=== PATIENT | male | born 1960 | race Caucasian/White ===

== ENCOUNTER 2018-08-16 13:46 | Inpatient (IN) | payer OTHER ==
--- NOTE | 2018-08-16 14:27 | ED Physician Chart ---
ED Chief Complaint/HPI - Patient Information Date Seen:: 08/16/18 Time Seen:: 14:00 Chief Complaint:: Fever History of Present Illness:: onset x 3 days of fever, cough, congestion, Abd. Pain, diarrhea, and weakness; no report of trauma, H/As, S/T, neck pain, C/P, SOB, A/N/V/C, chills, or urinary s/s Allergies:: Allergies Allergy/AdvReac Type Severity Reaction Status Date / Time No Known Allergies Allergy Verified 08/16/18 13:55 Vitals:: Vital Signs - 8 hr 08/16/18 14:02 Temp 99.5 F HR 120 RR 21 BP 120/92 O2 Sat % 96 Historian:: Patient, EMS Review:: Nurse's Note Reviewed, Old Chart Reviewed, EMS run form Reviewed ED Review of Systems - Review of Systems General/Constitutional: No fever, No chills, No weight loss, Weakness, No diaphoresis, No edema, No loss of appetite Skin: No skin lesions, No rash, No bruising Head: No headache, No light-headedness Eyes: No loss of vision, No pain, No diplopia ENT: No earache, No nasal drainage, No sore throat, No tinnitus Neck: No neck pain, No swelling, No thyromegaly, No stiffness, No mass noted Cardio Vascular: No chest pain, No palpitations, No PND, No orthopnea, No edema Pulmonary: No SOB, No cough, No sputum, No wheezing GI: Nausea, Vomiting, Diarrhea, Pain, No melena, No hematochezia, No constipation, No hematemesis G/U: No dysuria, No frequency, No hematuria, No nacturia Musculoskeletal: No bone or joint pain, No back pain, No muscle pain Endocrine: No polyuria, No polydipsia Psychiatric: No prior psych history, No depression, No anxiety, No suicidal ideation, No homicidal ideation, No auditory hallucination, No visual hallucination Hematopoietic: No bruising, No lymphadenopathy Allergic/Immuno: No urticaria, No angioedema Neurological: No syncope, No focal symptoms, No weakness, No paresthesia, No headache, No seizure, No dizziness, No confusion, No vertigo ED Past Medical History - Past Medical History Obtainable: Yes Past Medical History: HTN, CAD, CHF, Dyslipidemia Family History: HTN Social History: Non Smoker, No Alcohol, No Drug Use, Single, Care Facility Surgical History: None Psychiatricy History: None Medication: Reviewed Family Medical History - Family Member Mother History Unknown: Yes ED Physical Exam - Physical Examination General/Constitutional: Awake, Well-developed, well-nourished, Alert, No distress, GCS 15, Non-toxic appearing, Ambulatory Head: Atraumatic Eyes: Lids, conjuctiva normal, PERRL, EOMI Skin: Nl inspection, No rash, No skin lesions, No ecchymosis, Well hydrated, No lymphadenopathy ENMT: External ears, nose nl, TM canals nl, Nasal exam nl, Lips, teeth, gums nl , Oropharynx nl, Tonsils nl Neck: Nontender, Full ROM w/o pain, No JVD, No nuchal rigidity, No bruit, No mass, No stridor Other Neck comments:: supple; no meningeal signs; no cervical tenderness; no bruits Respiratory: Nl effort/Exclusion Other Respiratory comments:: Lungs: + Rales and Rhonchi Cardio Vascular: RRR, No murmur, gallop, rubs, NL S1 S2, Carotid/Femoral/Distal pulses equal bilaterally GI: No tenderness/rebounding/guarding, No organomegaly, No hernia, Normal BS's, Nondistended, No mass/bruits, No McBurney tenderness, Rectum exam nl Other GI comments:: no pulsatile masses : No CVA tenderness Extremities: No tenderness or effusion, Full ROM, normal strength in all extremities, No edema, Normal digits & nails Neuro/Psych: Alert/oriented, DTR's symmetric, Normal sensory exam, Normal motor strength, Judgement/insight normal, Mood normal, Normal gait, No focal deficits Misc: Normal back, No paraspinal tenderness ED Labs/Radiology/EKG Results - Lab Results Comments:: Reviewed - Radiology Results Comments:: CXR: + Patchy RLL Infiltrate; CM - EKG Interpretations EKG Time:: 14:21 Rate & Rhythm: 120; ST Comments:: non-specific st-t changes ED Septic Shock - . Is Septic Shock (SBP<90, OR Lactate>4 mmol\L) present?: No - <6hrs of presentation: Vital Signs: Vital Signs - 8 hr 08/16/18 14:02 Temp 99.5 F HR 120 RR 21 BP 120/92 O2 Sat % 96 ED Reassessment (Disposition) - Reassessment Reassessment Condition:: Improved - Diagnosis Diagnosis:: Fever; Weakness; Cough; Congestion; Abd. Pain; Pneumonia; Leukocytosis; Anemia; Lactic Acidosis; Elevated Lactic Acid; Hyponatremia; Dehydration; Tachycardia; HTN; Sepsis; UTI - Aftercare/Follow up Instructions Aftercare/Follow-Up Instructions:: Counseled pt regarding lab results/diagnosis & need follow up, Counseled pt & family regarding lab results/diagnosis & need follow up - Patient Disposition Discharge/Transfer:: Acute Care w/in this hosp Accepting Physician:: Dr. Reynoso Time Called:: 1600 Time Responded:: 16:00 Admitted to:: Telemetry Spoke to:: Dr. Reynoso Admitting Medical Physician:: Dr. Reynoso Condition at Disposition:: Stable, Improved
[2018-08-16] MEDS ORDERED: Levofloxacin 500mg/100mL 500 MG/100 ML BAG IV ONE ×2 (14:32→15:07)
[2018-08-16 14:35] LABS: % BASOPHILS 1.3 % (0.0-2.0); % EOSINOPHILS 0.8 % (0.0-5.0); % LYMPHOCYTES 8.7 % (20.0-50.0); % NEUTROPHILS 82.2 % (40.0-80.0); BASOPHILE ABSOLUTE 0.2 Th/cumm (0-0.2); EOSINOPHILE ABSOLUTE 0.1 Th/cmm (0.1-0.4); HEMATOCRIT 31.9 % (41.0-60); HEMOGLOBIN 10.4 gm/dL (12-16); LYMPHOCYTE ABSOLUTE 1.1 Th/cmm (1.5-3.0); MEAN CELL VOLUME 92.4 fl (80-99); MEAN CORPUSCULAR HEMOGLOBIN 30.2 pg (26.0-30.0); MEAN CORPUSCULAR HGB CONC 32.7 pg (28.0-36.0); MEAN PLATELET VOLUME 7.5 fl; MONOCYTE ABSOLUTE 0.9 Th/cmm (0.3-1.0); NEUTROPHILE ABSOLUTE 9.9 Th/cmm (1.8-8.0); PLATELET COUNT 307 Th/cmm (150-400); RED BLOOD COUNT 3.45 Mil/cmm (4.30-5.70); RED CELL DISTRIBUTION WIDTH 16.1 % (11.5-20.0); WHITE BLOOD COUNT 12.2 Th/cmm (4.8-10.8)
--- NOTE | 2018-08-16 14:37 | Diagnostic Imaging Report ---
CHEST X-RAY: AP view INDICATION: Weakness COMPARISON: None FINDINGS: Suboptimal lung volumes are seen with hazy right lung density likely due to an effusion. Left lower lung zone linear markings are noted. Heart size is normal. Degenerative changes of the spine are noted. Old left midclavicular fracture is noted. IMPRESSION: Hazy right lung density probably due to a pleural effusion. Underlying infiltrate in the right lower lung zone cannot be excluded. Recommend short-term follow-up with improved inspiration. Increased left basal linear markings probably due to subsegmental atelectasis or scarring.
[2018-08-16 14:50] LABS: INR 1.16 (0.5-1.4)
[2018-08-16 14:51] LABS: ALBUMIN 2.9 gm/dL (4.2-5.5); ALKALINE PHOSPHATASE 387 U/L (34-104); ANION GAP 13.4 (7.0-16.0); BILIRUBIN,TOTAL 0.8 mg/dL (0.3-1.0); BUN - UREA NITROGEN 10 mg/dL (7-25); CALCIUM SERUM 8.7 mg/dL (8.6-10.3); CARBON DIOXIDE 24.6 mEq/L (21.0-31.0); CHLORIDE 96 mEq/L (98-107); CREATININE - SERUM 0.4 mg/dL (0.7-1.3); CREATININE KINASE 15 U/L (30-223); GFR AFRICAN-AMERICAN > 60.0 ml/min (>90); GFR NON AFRICAN-AMERICAN > 60.0 ml/min; GLUCOSE 119 mg/dL (70-105); SGOT 45 U/L (13-39); SGPT/ALT 21 U/L (7-52); SODIUM SERUM 130 mEq/L (136-145); TOTAL PROTEIN,SERUM 5.8 gm/dL (6.0-8.3)
[2018-08-16 14:52] LABS: AMYLASE SERUM 43 U/L (29-103); LIPASE 32 U/L (11-82)
[2018-08-16 14:54] LABS: TROP I 0.01 ng/mL (0.01-0.05)
[2018-08-16] MEDS: Sodium Chloride 0.9% 1,000 ML IV ONE ×2 (15:04→20:21)
[2018-08-16 15:28] LABS: URINE SOURCE MIDSTREAM
[2018-08-16 15:32] LABS: URINE BILIRUBIN SMALL (NEGATIVE); URINE BLOOD NEGATIVE (NEGATIVE); URINE GLUCOSE (UA) NEGATIVE (NEGATIVE); URINE KETONE NEGATIVE (NEGATIVE); URINE LEUKOCYTE ESTERASE TRACE (NEGATIVE); URINE MICROSCOPIC INDICATED? YES; URINE NITRATE NEGATIVE (NEGATIVE); URINE PH 6.5 (4.6 - 8.0); URINE PROTEIN TRACE mg/dL (NEGATIVE); URINE UROBILINOGEN 0.2 E.U./dL (0.2 - 1.0)
[2018-08-16 15:34] LABS: URINE CLARITY CLEAR (CLEAR); URINE COLOR YELLOW
[2018-08-16 15:39] LABS: URINE BACTERIA FEW /hpf (NONE SEEN); URINE EPITHELIAL CELLS FEW /lpf (FEW); URINE RBC 0-2 /hpf (0-5)
[2018-08-16] MEDS: Morphine Sulfate 2 mg/mL 1mL Syr IVP PRN (21:04)
[2018-08-16] MEDS ORDERED: D5-0.45NS 1,000 ML IV SCH (23:59)
[2018-08-17] MEDS: Vancomycin HCL 250 mg /10mL UDC PO SCH ×4 (00:19→17:00)
[2018-08-17 06:26] LABS: % BASOPHILS 0.2 % (0.0-2.0); % LYMPHOCYTES 9.2 % (20.0-50.0); % MONOCYTES 9.3 % (2.0-10.0); % NEUTROPHILS 80.3 % (40.0-80.0); EOSINOPHILE ABSOLUTE 0.1 Th/cmm (0.1-0.4); HEMATOCRIT 33.2 % (41.0-60); HEMOGLOBIN 10.9 gm/dL (12-16); LYMPHOCYTE ABSOLUTE 1.1 Th/cmm (1.5-3.0); MEAN CELL VOLUME 92.8 fl (80-99); MEAN CORPUSCULAR HEMOGLOBIN 30.4 pg (26.0-30.0); MEAN CORPUSCULAR HGB CONC 32.8 pg (28.0-36.0); MEAN PLATELET VOLUME 7.2 fl; MONOCYTE ABSOLUTE 1.1 Th/cmm (0.3-1.0); NEUTROPHILE ABSOLUTE 9.3 Th/cmm (1.8-8.0); PLATELET COUNT 253 Th/cmm (150-400); RED BLOOD COUNT 3.58 Mil/cmm (4.30-5.70); RED CELL DISTRIBUTION WIDTH 15.9 % (11.5-20.0); WHITE BLOOD COUNT 11.6 Th/cmm (4.8-10.8)
[2018-08-17 06:36] LABS: ANION GAP 10.5 (7.0-16.0); BUN - UREA NITROGEN 9 mg/dL (7-25); CALCIUM SERUM 8.3 mg/dL (8.6-10.3); CARBON DIOXIDE 24.2 mEq/L (21.0-31.0); CHLORIDE 98 mEq/L (98-107); CREATININE - SERUM 0.3 mg/dL (0.7-1.3); GFR AFRICAN-AMERICAN > 60.0 ml/min (>90); GFR NON AFRICAN-AMERICAN > 60.0 ml/min; GLUCOSE 126 mg/dL (70-105); POTASSIUM SERUM 3.7 mEq/L (3.5-5.1); SODIUM SERUM 129 mEq/L (136-145)
[2018-08-17] MEDS: Pantoprazole 40 mg EC Tab PO SCH (06:38)
[2018-08-17] MEDS: Aspirin 81mg Chewable Tab PO SCH (08:45)
[2018-08-17] MEDS: Ferrous Sulfate 325 MG TAB PO SCH ×2 (08:45→17:00)
[2018-08-17] MEDS: Lactobacillus Rhamnosus GG 15 Billion CFU CAP.SPRINK PO SCH (08:45)
[2018-08-17] MEDS: Multivitamin w/ Minerals Tab PO SCH (08:45)
--- NOTE | 2018-08-17 09:05 | History & Physical ---
ADMIT DATE: 08/17/2018 CHIEF COMPLAINT: Fever and abdominal pain. HISTORY OF PRESENT ILLNESS: This is a 57-year-old male who was originally admitted from a halfway facility and transferred to [facility] due to fever and abdominal pain for 3 days. According to the patient, 10 days ago, he underwent abdominal tap with the average of about 7 liters taken. REVIEW OF SYSTEMS: GENERAL: This is a 57-year-old male. Positive weakness. Positive fever. HEAD: No headache or dizziness. EYES: No eye pain or blurring of vision. NECK: No neck pain. No nuchal rigidity. CHEST: No chest pain. No palpitation. PULMONARY: No cough. No shortness of breath. GASTROINTESTINAL: Positive abdominal pain. Positive distention. No constipation, no diarrhea. MUSCULOSKELETAL: No joint pain. No muscle pain. SOCIAL HISTORY: The patient lives in a halfway facility prior to hospitalization. PAST SURGICAL HISTORY: Unremarkable. FAMILY HISTORY: Unremarkable. PSYCHIATRIC HISTORY: Unremarkable. PAST MEDICAL HISTORY: Includes liver cirrhosis, anemia, congestive heart failure, gastroesophageal reflux disease, vitamin D deficiency. FAMILY HISTORY: Unremarkable. PHYSICAL EXAMINATION: VITAL SIGNS: Temperature 97.9, heart rate of 107, blood pressure 112/80, respirations 20, 96% on room air. GENERAL: This is a 57-year-old male that appears as stated in no acute distress. HEENT: Head is atraumatic and normocephalic. Eyes: Bilateral conjunctivae are clear. Bilateral pupils are equally round and reactive. NECK: Supple. No JVD. CARDIOVASCULAR: S1 and S2, without murmur. PULMONARY: Fine scattered rhonchi noted. GASTROINTESTINAL: Positive distention. Positive bowel sounds. MUSCULOSKELETAL: No clubbing. No cyanosis noted. ASSESSMENT: 1. Pneumonia. 2. Liver cirrhosis. 3. Anemia. 4. History of Clostridium difficile. PLAN: We will admit the patient to telemetry. We will do medication reconciliation accordingly. We will consult with GI and ID doctor. Treatment plans were discussed with the patient's nurse. Treatment plans were discussed with Dr. Reynoso. JOB# [id number]
[2018-08-17] MEDS: D5-0.9%NS 1,000 ML IV SCH ×2 (11:11→19:47)
[2018-08-17] MEDS ORDERED: Diltiazem 5 mg/mL 5mL Vial IVP PRN ×2 (14:52→15:20)
--- NOTE | 2018-08-17 14:59 | General Progress Note ---
Subjective - Review of Systems Service Date: 08/17/18 Subjective: Patient complains of abdominal pain and palpitation Objective - Results Result Diagrams: 08/17/18 06:10 08/17/18 06:15 Recent Labs: Laboratory Last Values WBC 11.6 Th/cmm (4.8-10.8) H 08/17/18 06:10 RBC 3.58 Mil/cmm (4.30-5.70) L 08/17/18 06:10 Hgb 10.9 gm/dL (12-16) L 08/17/18 06:10 Hct 33.2 % (41.0-60) L 08/17/18 06:10 MCV 92.8 fl (80-99) 08/17/18 06:10 MCH 30.4 pg (26.0-30.0) H 08/17/18 06:10 MCHC Differential 32.8 pg (28.0-36.0) 08/17/18 06:10 RDW 15.9 % (11.5-20.0) 08/17/18 06:10 Plt Count 253 Th/cmm (150-400) 08/17/18 06:10 MPV 7.2 fl 08/17/18 06:10 Neutrophils % 80.3 % (40.0-80.0) H 08/17/18 06:10 Lymphocytes % 9.2 % (20.0-50.0) L 08/17/18 06:10 Monocytes % 9.3 % (2.0-10.0) 08/17/18 06:10 Eosinophils % 1.0 % (0.0-5.0) 08/17/18 06:10 Basophils % 0.2 % (0.0-2.0) 08/17/18 06:10 PT 12.0 SECONDS (9.5-11.5) H 08/16/18 14:30 INR 1.16 (0.5-1.4) 08/16/18 14:30 PTT (Actin FS) 27.1 SECONDS (26.0-38.0) 08/16/18 14:30 Sodium 129 mEq/L (136-145) L 08/17/18 06:15 Potassium 3.7 mEq/L (3.5-5.1) 08/17/18 06:15 Chloride 98 mEq/L (98-107) 08/17/18 06:15 Carbon Dioxide 24.2 mEq/L (21.0-31.0) 08/17/18 06:15 Anion Gap 10.5 (7.0-16.0) 08/17/18 06:15 BUN 9 mg/dL (7-25) 08/17/18 06:15 Creatinine 0.3 mg/dL (0.7-1.3) L 08/17/18 06:15 Est GFR ( Amer) > 60.0 ml/min (>90) 08/17/18 06:15 Est GFR (Non-Af Amer) > 60.0 ml/min 08/17/18 06:15 BUN/Creatinine Ratio 30.0 08/17/18 06:15 Glucose 126 mg/dL (70-105) H 08/17/18 06:15 POC Glucose 96 MG/DL (70 - 105) 08/16/18 17:25 Whole Bld Lactic Acid 1.76 mmol/L (0.60-1.99) 08/16/18 17:00 Calcium 8.3 mg/dL (8.6-10.3) L 08/17/18 06:15 Total Bilirubin 0.8 mg/dL (0.3-1.0) 08/16/18 14:30 AST 45 U/L (13-39) H 08/16/18 14:30 ALT 21 U/L (7-52) 08/16/18 14:30 Alkaline Phosphatase 387 U/L (34-104) H 08/16/18 14:30 Creatine Kinase 15 U/L (30-223) L 08/16/18 14:30 Troponin I 0.01 ng/mL (0.01-0.05) 08/16/18 14:30 Total Protein 5.8 gm/dL (6.0-8.3) L 08/16/18 14:30 Albumin 2.9 gm/dL (4.2-5.5) L 08/16/18 14:30 Globulin 2.9 gm/dL 08/16/18 14:30 Albumin/Globulin Ratio 1.0 (1.0-1.8) 08/16/18 14:30 Amylase 43 U/L (29-103) 08/16/18 14:30 Lipase 32 U/L (11-82) 08/16/18 14:30 Urine Source MIDSTREAM 08/16/18 15:05 Urine Color YELLOW 08/16/18 15:05 Urine Clarity CLEAR (CLEAR) 08/16/18 15:05 Urine pH 6.5 (4.6 - 8.0) 08/16/18 15:05 Ur Specific [place] 1.010 (1.005-1.030) 08/16/18 15:05 Urine Protein TRACE mg/dL (NEGATIVE) 08/16/18 15:05 Urine Glucose (UA) NEGATIVE mg/dL (NEGATIVE) 08/16/18 15:05 Urine Ketones NEGATIVE mg/dL (NEGATIVE) 08/16/18 15:05 Urine Blood NEGATIVE (NEGATIVE) 08/16/18 15:05 Urine Nitrate NEGATIVE (NEGATIVE) 08/16/18 15:05 Urine Bilirubin SMALL (NEGATIVE) H 08/16/18 15:05 Urine Urobilinogen 0.2 E.U./dL (0.2 - 1.0) 08/16/18 15:05 Ur Leukocyte Esterase TRACE (NEGATIVE) H 08/16/18 15:05 Urine RBC 0-2 /hpf (0-5) H 08/16/18 15:05 Urine WBC 2-5 /hpf (0-5) 08/16/18 15:05 Ur Epithelial Cells FEW /lpf (FEW) 08/16/18 15:05 Urine Bacteria FEW /hpf (NONE SEEN) 08/16/18 15:05 Urine Mucus FEW /lpf (FEW) 08/16/18 15:05 - Physical Exam Vitals and I&O: Vital Signs Temp 97.3 F 08/17/18 12:00 Pulse 105 08/17/18 12:31 Resp 20 08/17/18 12:00 BP 122/81 08/17/18 12:32 Pulse Ox 96 08/17/18 12:00 Intake & Output 08/16/18 08/17/18 08/17/18 18:59 06:59 18:59 Intake Total 628.333 240 Output Total 300 Balance 628.333 -60 Weight (lbs) 58.967 kg 58.967 kg 58.967 kg Intake: Intake, IV Amount 528.333 Sodium Chloride 0.9% 1, 528.333 000 ml @ 100 mls/hr IV . Q10H ONE Rx#:[id number] Oral 100 240 Output: Urine 300 Other: # Bowel Movements 0 Weight Source Estimated Bedscale Bedscale Active Medications: Current Medications Aspirin (Aspirin Chewable) 81 mg PO DAILY [facility] Stop: 10/16/18 08:59 Last Admin: 08/17/18 08:45 Dose: Not Given Benzonatate (Tessalon) 100 mg PO Q8H PRN PRN Reason: Cough Stop: 10/15/18 23:37 Cholecalciferol (Vitamin D3) 1,000 iu PO DAILY [facility] Stop: 10/16/18 08:59 Last Admin: 08/17/18 08:45 Dose: Not Given Diltiazem HCl (Cardizem) 20 mg IVP Q4H PRN PRN Reason: HR Greater than 120 per min Stop: 10/16/18 14:51 Diltiazem HCl (Cardizem) 60 mg PO Q6HR [facility] Stop: 10/16/18 17:59 Ferrous Sulfate (Iron) 325 mg PO BIDWM [facility] Stop: 10/16/18 07:59 Last Admin: 08/17/18 08:45 Dose: Not Given Folic Acid (Folate) 1 mg PO DAILY [facility] Stop: 10/16/18 08:59 Last Admin: 08/17/18 08:45 Dose: Not Given Furosemide (Lasix) 40 mg IVP DAILY [facility] Stop: 10/16/18 12:59 Last Admin: 08/17/18 12:32 Dose: 40 mg Ceftriaxone Sodium 1 gm/ (Sodium Chloride) 50 mls @ 100 mls/hr IV Q24HR [facility] Stop: 10/16/18 17:59 Dextrose/Sodium Chloride (D5-0.9%Ns) 1,000 mls @ 100 mls/hr IV .Q10H [facility] Stop: 10/16/18 09:44 Last Admin: 08/17/18 11:11 Dose: 100 mls/hr Lactobacillus Rhamnosus (Culturelle 15b) 1 each PO DAILY [facility] Stop: 10/16/18 08:59 Last Admin: 08/17/18 08:45 Dose: Not Given Morphine Sulfate (Morphine) 1 mg IVP Q4HR PRN PRN Reason: mild to moderate pain (1-6) Stop: 10/15/18 20:24 Last Admin: 08/16/18 21:04 Dose: 1 mg Morphine Sulfate (Morphine) 2 mg IVP Q4HR PRN PRN Reason: Severe Pain (LEVEL 7-10) Stop: 10/15/18 20:25 Pantoprazole Sodium (Protonix) 40 mg PO QDAC [facility] Stop: 10/16/18 07:29 Last Admin: 08/17/18 06:38 Dose: Not Given Spironolactone (Aldactone) 100 mg PO DAILY [facility] Stop: 10/16/18 12:59 Last Admin: 08/17/18 12:31 Dose: 100 mg Vancomycin HCl (Vancomycin Oral) 250 mg PO Q6HR [facility] Stop: 10/15/18 20:59 Last Admin: 08/17/18 12:31 Dose: 250 mg General: Alert, Oriented x3, No acute distress HEENT: Mucous membr. moist/pink Neck: Supple, JVD, +2 carotid pulse wo bruit (flat) Cardiovascular: Normal S1, Normal S2, Systolic murmurs, Other Lungs: Clear to auscultation (sinus tachycardia), Normal air movement Abdomen: Bowel sounds, Soft, Splenomegaly, Distended, Other (ascites) Extremities: Edema Neurological: Normal gait, Strength at 5/5 X4 ext, Normal tone, Cranial nerves 3 -12 NL, Reflexes 2+ Assessment/Plan - Problem List Patient Problems: All Active Problems WEAKNESS WITH ABDOMINAL DISTENTION (Acute) - Assessment Assessment: Supraventricular tachycardia Pneumonia Ascites Cirrhosis of liver Anemia Splenomegaly negative C. difficile colitis Congestive heart failure diastolic dysfunction acute Hyperlipidemia - Plan Plan: Continue present management patient cleared for paracentesis Patient given Cardizem IV push to control heart rate
[2018-08-17] MEDS ORDERED: Probiotic Screen MC PRN (15:43)
[2018-08-17] MEDS: Diltiazem 30 mg Tab PO SCH (17:00)
[2018-08-17] MEDS ORDERED: cefTRIAXone 1 GM in Sodium Chloride 0.9% 50 ML IV SCH (18:00)
[2018-08-17] MEDS ORDERED: cefTRIAXone 2 GM in Sodium Chloride 0.9% 100 ML IV SCH (18:15)
[2018-08-17] MEDS: Morphine Sulfate 2 mg/mL 1mL Syr IVP PRN ×2 (19:45→21:39)
--- NOTE | 2018-08-17 21:57 | Consultation ---
DATE OF CONSULTATION: 08/16/2018 INFECTIOUS DISEASE CONSULTATION REFERRING PHYSICIAN: Erin Reynoso M.D. REASON FOR CONSULTATION: Obliterative peritonitis. HISTORY OF PRESENT ILLNESS: The patient is a 57-year-old male with a past medical history of hypertension, coronary artery disease, CHF, dyslipidemia, brought in to the ER for fever of 3 days, history of cough and congestion. The patient also complained of diarrhea and generalized weakness. On initial evaluation, the patient's temperature was 99.5 degree Fahrenheit and WBC count was 12,200. Lactic acid was 2.12. As the patient has lactic acidosis, suspected sepsis. Sepsis workup was performed. Chest x-ray showed no active disease. The patient has density on the right side, suspect upper lobe effusion. Underlying plaque and cannot be ruled out. After suspect pneumonia and peritonitis, the patient was started on Rocephin and Zithromax. ID consult was called for further antibiotic management. PAST MEDICAL HISTORY: Includes hypertension, coronary artery disease, CHF, Dyslipidemia, liver cirrhosis and stool for C. diff. FAMILY HISTORY: Hypertension. SOCIAL HISTORY: The patient lives in a nursing facility. No history of smoking, alcohol or drug use at this time. PAST SURGICAL HISTORY: None. PSYCHIATRIC HISTORY: None. MEDICATIONS: As per medication reconciliation sheet. Antibiotic sweet, the patient is receiving vancomycin oral and Rocephin. ALLERGIES: NKDA. REVIEW OF SYSTEMS: GENERAL: The patient has no fever, no chills, no weight loss. The patient has generalized weakness. HEENT: No diplopia, no photophobia, no sore throat. RESPIRATORY: No cough, no shortness of breath. CARDIOVASCULAR: No chest pain, no palpitation, no leg swelling. GASTROINTESTINAL: The patient has nausea, vomiting, diarrhea and abdominal pain. No melena. GENITOURINARY: No dysuria. MUSCULOSKELETAL: No muscle pain, no joint pain. NEUROLOGIC: No headache, no dizziness, no focal weakness. PHYSICAL EXAMINATION: VITAL SIGNS: Shows temperature is 98.2, pulse 160, respirations 19, blood pressure 112/74. GENERAL: The patient is comfortable, lying in the bed, not in acute distress. HEENT: Head is normocephalic, atraumatic. Oral cavity moist, pink tongue. NECK: Supple, no JVD, no carotid bruit. Trachea in midline. CHEST: Bilateral breath sounds. No crackles or wheezing. CARDIOVASCULAR: S1, S2 within normal limits. Regular rhythm. No murmur, no gallop. ABDOMEN: Soft, nontender, nondistended. Bowel sounds present. EXTREMITIES: No cyanosis, no clubbing, no edema. NEUROLOGIC: Alert, awake, oriented x 3. No focal neurologic deficit. LABORATORY DATA: Current lab shows WBC count is 12,200, hemoglobin is 10.4, hematocrit 31.9, platelets are 307,000, neutrophil is 82%. Sodium 130, potassium 4, chloride 96, bicarbonate is 25, BUN is 10, creatinine 0.4, glucose is 119. Chest x-ray showed right lower lobe hilar opacities consistent with effusion versus infiltrate. IMPRESSION: 1. Right lower lobe pneumonia. 2. Leukocytosis, reactive versus sepsis. 3. Clostridium difficile colitis, on treatment. 4. Abdominal pain, rule out spontaneous bacterial peritonitis versus gastroenteritis. RECOMMENDATIONS: Continue Rocephin, vancomycin p.o. Monitor closely. Check stool for C. diff panel. [facility]# [id number] [facility]
--- NOTE | 2018-08-17 22:29 | Consultation ---
DATE OF CONSULTATION: 08/17/2018 REASON FOR CONSULT: Ascites. HISTORY OF PRESENT ILLNESS: This consult was obtained through the courtesy of Dr. Reynoso for this 57-year-old [facility] for fever, abdominal distention of few days' duration. The patient is not a good historian. He stated he knew only about cirrhosis when he came here, but on the other hand he admits to having 2 paracenteses before. The patient presented with abdominal distention, complaining of abdominal pain. PAST MEDICAL HISTORY: Cirrhosis of the liver. PAST SURGICAL HISTORY: He had an elbow surgery, ankle surgery, foot surgery. He had appendectomy. SOCIAL HISTORY: Smokes currently 2 cigars a day, used to smoke heavily. He drinks a couple of beers a day, used to drink much more before, about 6 a day, non-IV drug abuser. FAMILY HISTORY: Negative. ALLERGIES: No known drug allergies. MEDICATIONS: The patient is on aspirin, benazepril, Rocephin, vitamin D, iron, folic acid, Lasix 20 mg a day, Culturelle, morphine, Protonix, vancomycin. REVIEW OF SYSTEMS: Denies nausea, vomiting, hematemesis, melena, or hematochezia. He complains of abdominal pain. PHYSICAL EXAMINATION: GENERAL: The patient is awake, oriented to self and place, in no acute distress. VITAL SIGNS: Blood pressure is 112/80, heart rate 107, respiratory rate 20, and temperature 97.9. HEAD AND NECK: Pupils reactive to light and accommodation. Extraocular muscles intact. Sclerae are anicteric. Conjunctivae not pale. Oral cavity, no lesion. Neck supple. CHEST: Good air entry. LUNGS: Clear to auscultation. CARDIOVASCULAR SYSTEM: Showed regular rate and rhythm. No murmur or gallop. ABDOMEN: Soft, distended. There is ascites. EXTREMITIES: Lower extremities, no edema. CENTRAL NERVOUS SYSTEM: Grossly nonfocal. Generally, the patient is cachectic. LABORATORY AND DIAGNOSTIC DATA: White count 11.6, H and H 10.9 and 33.2 with platelets of 253. PT is 12 seconds. Chemistry showed AST of 45, ALT 21, alkaline phosphatase 387, bilirubin 0.8. IMPRESSION: A 57-year-old with decompensated cirrhosis. ASSESSMENT AND PLAN: Decompensated cirrhosis. Etiology of cirrhosis most likely alcohol. At this time, we are not quite sure what workup has been done before. We will try to get information from the penitentiary or from the attending physician, but in general the patient should have an ultrasound and an alpha fetoprotein every 6 months. The patient will need to have a paracentesis. We will try to do it today with Radiology if possible. If not, we will continue with diureses. At this time, 20 mg of Lasix is not sufficient. So will increase Lasix to 40 mg intravenously. We will start with now and daily. We will also add Aldactone 200 mg daily and monitor labs. Other medical problem such as hypertension, coronary artery disease, congestive heart failure, hyperlipidemia as per Dr. Reynoso. Thank you, Dr. Reynoso for allowing me to participate in the care of your patient. If you have any further questions, please let me know. JOB# [id number]
[2018-08-18] MEDS: Diltiazem 30 mg Tab PO SCH ×5 (00:55→23:48)
[2018-08-18] MEDS: Vancomycin HCL 250 mg /10mL UDC PO SCH ×5 (00:56→23:46)
[2018-08-18] MEDS: D5-0.9%NS 1,000 ML IV SCH ×2 (03:19→06:21)
[2018-08-18] MEDS: Pantoprazole 40 mg EC Tab PO SCH (07:03)
[2018-08-18] MEDS: Morphine Sulfate 2 mg/mL 1mL Syr IVP PRN ×2 (08:08→14:19)
[2018-08-18] MEDS ORDERED: Diatrizoate Meglumine/Diatri 30 mL Sol ONE (08:20)
[2018-08-18] MEDS: Ferrous Sulfate 325 MG TAB PO SCH ×2 (08:30→19:37)
[2018-08-18 08:31] LABS: % BASOPHILS 0.6 % (0.0-2.0); % EOSINOPHILS 1.3 % (0.0-5.0); % LYMPHOCYTES 9.5 % (20.0-50.0); % MONOCYTES 10.1 % (2.0-10.0); % NEUTROPHILS 78.5 % (40.0-80.0); BASOPHILE ABSOLUTE 0.1 Th/cumm (0-0.2); EOSINOPHILE ABSOLUTE 0.1 Th/cmm (0.1-0.4); HEMATOCRIT 31.5 % (41.0-60); HEMOGLOBIN 10.7 gm/dL (12-16); LYMPHOCYTE ABSOLUTE 1.1 Th/cmm (1.5-3.0); MEAN CELL VOLUME 92.7 fl (80-99); MEAN CORPUSCULAR HEMOGLOBIN 31.5 pg (26.0-30.0); MEAN PLATELET VOLUME 7.5 fl; MONOCYTE ABSOLUTE 1.1 Th/cmm (0.3-1.0); NEUTROPHILE ABSOLUTE 8.7 Th/cmm (1.8-8.0); PLATELET COUNT 278 Th/cmm (150-400); WHITE BLOOD COUNT 11.1 Th/cmm (4.8-10.8)
[2018-08-18] MEDS: Aspirin 81mg Chewable Tab PO SCH (08:31)
[2018-08-18] MEDS: Multivitamin w/ Minerals Tab PO SCH (08:31)
[2018-08-18] MEDS: Lactobacillus Rhamnosus GG 15 Billion CFU CAP.SPRINK PO SCH (08:31)
[2018-08-18 08:41] LABS: ANION GAP 10.3 (7.0-16.0); BUN - UREA NITROGEN 9 mg/dL (7-25); CALCIUM SERUM 8.2 mg/dL (8.6-10.3); CARBON DIOXIDE 26.2 mEq/L (21.0-31.0); CHLORIDE 98 mEq/L (98-107); CREATININE - SERUM 0.4 mg/dL (0.7-1.3); GFR AFRICAN-AMERICAN > 60.0 ml/min (>90); GFR NON AFRICAN-AMERICAN > 60.0 ml/min; GLUCOSE 105 mg/dL (70-105); POTASSIUM SERUM 3.5 mEq/L (3.5-5.1); SODIUM SERUM 131 mEq/L (136-145)
--- NOTE | 2018-08-18 10:17 | GI Progress Note ---
Subjective - Review of Systems Service Date: 08/18/18 Events since last encounter: No events Subjective: Waiting for paracentesis Objective - Results Result Diagrams: 08/18/18 05:45 08/18/18 05:45 Recent Labs: Laboratory Last Values WBC 11.1 Th/cmm (4.8-10.8) H 08/18/18 05:45 RBC 3.40 Mil/cmm (4.30-5.70) L 08/18/18 05:45 Hgb 10.7 gm/dL (12-16) L 08/18/18 05:45 Hct 31.5 % (41.0-60) L 08/18/18 05:45 MCV 92.7 fl (80-99) 08/18/18 05:45 MCH 31.5 pg (26.0-30.0) H 08/18/18 05:45 MCHC Differential 34.0 pg (28.0-36.0) 08/18/18 05:45 RDW 16.0 % (11.5-20.0) 08/18/18 05:45 Plt Count 278 Th/cmm (150-400) 08/18/18 05:45 MPV 7.5 fl 08/18/18 05:45 Neutrophils % 78.5 % (40.0-80.0) 08/18/18 05:45 Lymphocytes % 9.5 % (20.0-50.0) L 08/18/18 05:45 Monocytes % 10.1 % (2.0-10.0) H 08/18/18 05:45 Eosinophils % 1.3 % (0.0-5.0) 08/18/18 05:45 Basophils % 0.6 % (0.0-2.0) 08/18/18 05:45 PT 12.0 SECONDS (9.5-11.5) H 08/16/18 14:30 INR 1.16 (0.5-1.4) 08/16/18 14:30 PTT (Actin FS) 27.1 SECONDS (26.0-38.0) 08/16/18 14:30 Sodium 131 mEq/L (136-145) L 08/18/18 05:45 Potassium 3.5 mEq/L (3.5-5.1) 08/18/18 05:45 Chloride 98 mEq/L (98-107) 08/18/18 05:45 Carbon Dioxide 26.2 mEq/L (21.0-31.0) 08/18/18 05:45 Anion Gap 10.3 (7.0-16.0) 08/18/18 05:45 BUN 9 mg/dL (7-25) 08/18/18 05:45 Creatinine 0.4 mg/dL (0.7-1.3) L 08/18/18 05:45 Est GFR ( Amer) > 60.0 ml/min (>90) 08/18/18 05:45 Est GFR (Non-Af Amer) > 60.0 ml/min 08/18/18 05:45 BUN/Creatinine Ratio 22.5 08/18/18 05:45 Glucose 105 mg/dL (70-105) 08/18/18 05:45 POC Glucose 96 MG/DL (70 - 105) 08/16/18 17:25 Whole Bld Lactic Acid 1.76 mmol/L (0.60-1.99) 08/16/18 17:00 Calcium 8.2 mg/dL (8.6-10.3) L 08/18/18 05:45 Total Bilirubin 0.8 mg/dL (0.3-1.0) 08/16/18 14:30 AST 45 U/L (13-39) H 08/16/18 14:30 ALT 21 U/L (7-52) 08/16/18 14:30 Alkaline Phosphatase 387 U/L (34-104) H 08/16/18 14:30 Creatine Kinase 15 U/L (30-223) L 08/16/18 14:30 Troponin I 0.01 ng/mL (0.01-0.05) 08/16/18 14:30 B-Natriuretic Peptide 63.1 pg/mL (5.0-100.0) 08/18/18 05:45 Total Protein 5.8 gm/dL (6.0-8.3) L 08/16/18 14:30 Albumin 2.9 gm/dL (4.2-5.5) L 08/16/18 14:30 Globulin 2.9 gm/dL 08/16/18 14:30 Albumin/Globulin Ratio 1.0 (1.0-1.8) 08/16/18 14:30 Amylase 43 U/L (29-103) 08/16/18 14:30 Lipase 32 U/L (11-82) 08/16/18 14:30 Urine Source MIDSTREAM 08/16/18 15:05 Urine Color YELLOW 08/16/18 15:05 Urine Clarity CLEAR (CLEAR) 08/16/18 15:05 Urine pH 6.5 (4.6 - 8.0) 08/16/18 15:05 Ur Specific [place] 1.010 (1.005-1.030) 08/16/18 15:05 Urine Protein TRACE mg/dL (NEGATIVE) 08/16/18 15:05 Urine Glucose (UA) NEGATIVE mg/dL (NEGATIVE) 08/16/18 15:05 Urine Ketones NEGATIVE mg/dL (NEGATIVE) 08/16/18 15:05 Urine Blood NEGATIVE (NEGATIVE) 08/16/18 15:05 Urine Nitrate NEGATIVE (NEGATIVE) 08/16/18 15:05 Urine Bilirubin SMALL (NEGATIVE) H 08/16/18 15:05 Urine Urobilinogen 0.2 E.U./dL (0.2 - 1.0) 08/16/18 15:05 Ur Leukocyte Esterase TRACE (NEGATIVE) H 08/16/18 15:05 Urine RBC 0-2 /hpf (0-5) H 08/16/18 15:05 Urine WBC 2-5 /hpf (0-5) 08/16/18 15:05 Ur Epithelial Cells FEW /lpf (FEW) 08/16/18 15:05 Urine Bacteria FEW /hpf (NONE SEEN) 08/16/18 15:05 Urine Mucus FEW /lpf (FEW) 08/16/18 15:05 - Physical Exam Vitals and I&O: Vital Signs Temp 97.5 F 08/18/18 08:00 Pulse 111 08/18/18 08:32 Resp 19 08/18/18 08:00 BP 112/76 08/18/18 08:32 Pulse Ox 95 08/18/18 08:00 Intake & Output 08/17/18 08/18/18 08/18/18 18:59 06:59 18:59 Intake Total 740 1400 Output Total 300 250 Balance 440 1150 Weight (lbs) 59.874 kg 59.874 kg Intake: Intake, IV Amount 1300 D5-0.9%Ns 1,000 ml @ 100 1000 mls/hr IV .Q10H [facility] Rx#: [id number] Vancomycin HCl 1 gm In 250 Sodium Chloride 0.9% 250 ml @ 165 mls/hr IV Q8H [facility] Rx#:[id number] cefTRIAXone 1 gm In 50 Sodium Chloride 0.9% 50 ml @ 100 mls/hr IV Q24HR [facility] Rx#:[id number] Oral 740 100 Output: Urine 300 250 Other: # Voids 6 # Bowel Movements 3 0 Weight Source Bedscale Bedscale Active Medications: Current Medications Aspirin (Aspirin Chewable) 81 mg PO DAILY [facility] Stop: 10/16/18 08:59 Last Admin: 08/18/18 08:31 Dose: Not Given Benzonatate (Tessalon) 100 mg PO Q8H PRN PRN Reason: Cough Stop: 10/15/18 23:37 Cholecalciferol (Vitamin D3) 1,000 iu PO DAILY [facility] Stop: 10/16/18 08:59 Last Admin: 08/18/18 08:31 Dose: Not Given Diltiazem HCl (Cardizem) 20 mg IVP Q4H PRN PRN Reason: HR Greater than 120 per min Stop: 10/16/18 15:19 Last Admin: 08/17/18 15:21 Dose: 20 mg Diltiazem HCl (Cardizem) 60 mg PO Q6HR [facility] Stop: 10/16/18 17:59 Last Admin: 08/18/18 05:51 Dose: 60 mg Ferrous Sulfate (Iron) 325 mg PO BIDWM [facility] Stop: 10/16/18 07:59 Last Admin: 08/18/18 08:30 Dose: Not Given Folic Acid (Folate) 1 mg PO DAILY [facility] Stop: 10/16/18 08:59 Last Admin: 08/18/18 08:31 Dose: Not Given Furosemide (Lasix) 40 mg IVP DAILY [facility] Stop: 10/16/18 12:59 Last Admin: 08/18/18 08:31 Dose: Not Given Dextrose/Sodium Chloride (D5-0.9%Ns) 1,000 mls @ 100 mls/hr IV .Q10H [facility] Stop: 10/16/18 09:44 Last Admin: 08/18/18 06:21 Dose: Not Given Ceftriaxone Sodium 2 gm/ (Sodium Chloride) 100 mls @ 100 mls/hr IV Q24H [facility] Stop: 10/17/18 20:59 Vancomycin HCl 1 gm/ Sodium (Chloride) 250 mls @ 250 mls/hr IV Q8H [facility] Stop: 10/17/18 11:59 Lactobacillus Rhamnosus (Culturelle 15b) 1 each PO DAILY [facility] Stop: 10/16/18 08:59 Last Admin: 08/18/18 08:31 Dose: Not Given Miscellaneous (Probiotic Screen) 1 ea MC PRN PRN PRN Reason: PROTOCOL Stop: 10/16/18 15:42 Miscellaneous (Vancomycin Iv Per Pharmacy) 1 ea MC PRN PRN PRN Reason: PROTOCOL Stop: 10/16/18 18:08 Morphine Sulfate (Morphine) 1 mg IVP Q4HR PRN PRN Reason: mild to moderate pain (1-6) Stop: 10/15/18 20:24 Last Admin: 08/17/18 19:45 Dose: 1 mg Morphine Sulfate (Morphine) 2 mg IVP Q4HR PRN PRN Reason: Severe Pain (LEVEL 7-10) Stop: 10/15/18 20:25 Last Admin: 08/18/18 08:08 Dose: 2 mg Pantoprazole Sodium (Protonix) 40 mg PO QDAC [facility] Stop: 10/16/18 07:29 Last Admin: 08/18/18 07:03 Dose: Not Given Spironolactone (Aldactone) 100 mg PO DAILY [facility] Stop: 10/16/18 12:59 Last Admin: 08/18/18 08:32 Dose: Not Given Vancomycin HCl (Vancomycin Oral) 250 mg PO Q6HR [facility] Stop: 10/15/18 20:59 Last Admin: 08/18/18 05:45 Dose: Not Given General: Alert, Oriented x3, No acute distress HEENT: Mucous membr. moist/pink Neck: Supple Cardiovascular: Regular rate, Normal S1, Normal S2, Other Lungs: Clear to auscultation (sinus tachycardia), Normal air movement Abdomen: Bowel sounds, Soft, Splenomegaly, Distended, Other (ascites) Extremities: Edema Assessment/Plan - Problem List Patient Problems: All Active Problems WEAKNESS WITH ABDOMINAL DISTENTION (Acute) - Assessment Assessment: Decompensated cirrhosis - Plan Plan: 1. Decompensated cirrhosis Diuresis Paracentesis AFP and US every 6 months 2. Ascites Paracentesis tomorroa Diuresis
--- NOTE | 2018-08-18 10:24 | Internal Medicine Prog Note ---
Internal Medicine Subjective - Subjective Patient seen and examined:: chart reviewed Patient is:: awake, talking, other (admitted vwith fever & abd pain Waiting for paracentesis) Per staff patient has:: no adverse event Internal Medicine Objective - Results Result Diagrams: 08/18/18 05:45 08/18/18 05:45 Recent Labs: Laboratory Last Values WBC 11.1 Th/cmm (4.8-10.8) H 08/18/18 05:45 RBC 3.40 Mil/cmm (4.30-5.70) L 08/18/18 05:45 Hgb 10.7 gm/dL (12-16) L 08/18/18 05:45 Hct 31.5 % (41.0-60) L 08/18/18 05:45 MCV 92.7 fl (80-99) 08/18/18 05:45 MCH 31.5 pg (26.0-30.0) H 08/18/18 05:45 MCHC Differential 34.0 pg (28.0-36.0) 08/18/18 05:45 RDW 16.0 % (11.5-20.0) 08/18/18 05:45 Plt Count 278 Th/cmm (150-400) 08/18/18 05:45 MPV 7.5 fl 08/18/18 05:45 Neutrophils % 78.5 % (40.0-80.0) 08/18/18 05:45 Lymphocytes % 9.5 % (20.0-50.0) L 08/18/18 05:45 Monocytes % 10.1 % (2.0-10.0) H 08/18/18 05:45 Eosinophils % 1.3 % (0.0-5.0) 08/18/18 05:45 Basophils % 0.6 % (0.0-2.0) 08/18/18 05:45 PT 12.0 SECONDS (9.5-11.5) H 08/16/18 14:30 INR 1.16 (0.5-1.4) 08/16/18 14:30 PTT (Actin FS) 27.1 SECONDS (26.0-38.0) 08/16/18 14:30 Sodium 131 mEq/L (136-145) L 08/18/18 05:45 Potassium 3.5 mEq/L (3.5-5.1) 08/18/18 05:45 Chloride 98 mEq/L (98-107) 08/18/18 05:45 Carbon Dioxide 26.2 mEq/L (21.0-31.0) 08/18/18 05:45 Anion Gap 10.3 (7.0-16.0) 08/18/18 05:45 BUN 9 mg/dL (7-25) 08/18/18 05:45 Creatinine 0.4 mg/dL (0.7-1.3) L 08/18/18 05:45 Est GFR ( Amer) > 60.0 ml/min (>90) 08/18/18 05:45 Est GFR (Non-Af Amer) > 60.0 ml/min 08/18/18 05:45 BUN/Creatinine Ratio 22.5 08/18/18 05:45 Glucose 105 mg/dL (70-105) 08/18/18 05:45 POC Glucose 96 MG/DL (70 - 105) 08/16/18 17:25 Whole Bld Lactic Acid 1.76 mmol/L (0.60-1.99) 08/16/18 17:00 Calcium 8.2 mg/dL (8.6-10.3) L 08/18/18 05:45 Total Bilirubin 0.8 mg/dL (0.3-1.0) 08/16/18 14:30 AST 45 U/L (13-39) H 08/16/18 14:30 ALT 21 U/L (7-52) 08/16/18 14:30 Alkaline Phosphatase 387 U/L (34-104) H 08/16/18 14:30 Creatine Kinase 15 U/L (30-223) L 08/16/18 14:30 Troponin I 0.01 ng/mL (0.01-0.05) 08/16/18 14:30 B-Natriuretic Peptide 63.1 pg/mL (5.0-100.0) 08/18/18 05:45 Total Protein 5.8 gm/dL (6.0-8.3) L 08/16/18 14:30 Albumin 2.9 gm/dL (4.2-5.5) L 08/16/18 14:30 Globulin 2.9 gm/dL 08/16/18 14:30 Albumin/Globulin Ratio 1.0 (1.0-1.8) 08/16/18 14:30 Amylase 43 U/L (29-103) 08/16/18 14:30 Lipase 32 U/L (11-82) 08/16/18 14:30 Urine Source MIDSTREAM 08/16/18 15:05 Urine Color YELLOW 08/16/18 15:05 Urine Clarity CLEAR (CLEAR) 08/16/18 15:05 Urine pH 6.5 (4.6 - 8.0) 08/16/18 15:05 Ur Specific [place] 1.010 (1.005-1.030) 08/16/18 15:05 Urine Protein TRACE mg/dL (NEGATIVE) 08/16/18 15:05 Urine Glucose (UA) NEGATIVE mg/dL (NEGATIVE) 08/16/18 15:05 Urine Ketones NEGATIVE mg/dL (NEGATIVE) 08/16/18 15:05 Urine Blood NEGATIVE (NEGATIVE) 08/16/18 15:05 Urine Nitrate NEGATIVE (NEGATIVE) 08/16/18 15:05 Urine Bilirubin SMALL (NEGATIVE) H 08/16/18 15:05 Urine Urobilinogen 0.2 E.U./dL (0.2 - 1.0) 08/16/18 15:05 Ur Leukocyte Esterase TRACE (NEGATIVE) H 08/16/18 15:05 Urine RBC 0-2 /hpf (0-5) H 08/16/18 15:05 Urine WBC 2-5 /hpf (0-5) 08/16/18 15:05 Ur Epithelial Cells FEW /lpf (FEW) 08/16/18 15:05 Urine Bacteria FEW /hpf (NONE SEEN) 08/16/18 15:05 Urine Mucus FEW /lpf (FEW) 08/16/18 15:05 - Physical Exam Vitals and I&O: Vital Signs Temp 97.5 F 08/18/18 08:00 Pulse 111 08/18/18 08:32 Resp 19 08/18/18 08:00 BP 112/76 08/18/18 08:32 Pulse Ox 95 08/18/18 08:00 Intake & Output 08/17/18 08/18/18 08/18/18 18:59 06:59 18:59 Intake Total 740 1400 Output Total 300 250 Balance 440 1150 Weight (lbs) 59.874 kg 59.874 kg Intake: Intake, IV Amount 1300 D5-0.9%Ns 1,000 ml @ 100 1000 mls/hr IV .Q10H [facility] Rx#: [id number] Vancomycin HCl 1 gm In 250 Sodium Chloride 0.9% 250 ml @ 165 mls/hr IV Q8H [facility] Rx#:[id number] cefTRIAXone 1 gm In 50 Sodium Chloride 0.9% 50 ml @ 100 mls/hr IV Q24HR [facility] Rx#:[id number] Oral 740 100 Output: Urine 300 250 Other: # Voids 6 # Bowel Movements 3 0 Weight Source Bedscale Bedscale Active Medications: Current Medications Aspirin (Aspirin Chewable) 81 mg PO DAILY [facility] Stop: 10/16/18 08:59 Last Admin: 08/18/18 08:31 Dose: Not Given Benzonatate (Tessalon) 100 mg PO Q8H PRN PRN Reason: Cough Stop: 10/15/18 23:37 Cholecalciferol (Vitamin D3) 1,000 iu PO DAILY [facility] Stop: 10/16/18 08:59 Last Admin: 08/18/18 08:31 Dose: Not Given Diltiazem HCl (Cardizem) 20 mg IVP Q4H PRN PRN Reason: HR Greater than 120 per min Stop: 10/16/18 15:19 Last Admin: 08/17/18 15:21 Dose: 20 mg Diltiazem HCl (Cardizem) 60 mg PO Q6HR [facility] Stop: 10/16/18 17:59 Last Admin: 08/18/18 05:51 Dose: 60 mg Ferrous Sulfate (Iron) 325 mg PO BIDWM [facility] Stop: 10/16/18 07:59 Last Admin: 08/18/18 08:30 Dose: Not Given Folic Acid (Folate) 1 mg PO DAILY [facility] Stop: 10/16/18 08:59 Last Admin: 08/18/18 08:31 Dose: Not Given Furosemide (Lasix) 40 mg IVP DAILY [facility] Stop: 10/16/18 12:59 Last Admin: 08/18/18 08:31 Dose: Not Given Dextrose/Sodium Chloride (D5-0.9%Ns) 1,000 mls @ 100 mls/hr IV .Q10H [facility] Stop: 10/16/18 09:44 Last Admin: 08/18/18 06:21 Dose: Not Given Ceftriaxone Sodium 2 gm/ (Sodium Chloride) 100 mls @ 100 mls/hr IV Q24H [facility] Stop: 10/17/18 20:59 Vancomycin HCl 1 gm/ Sodium (Chloride) 250 mls @ 250 mls/hr IV Q8H [facility] Stop: 10/17/18 11:59 Lactobacillus Rhamnosus (Culturelle 15b) 1 each PO DAILY [facility] Stop: 10/16/18 08:59 Last Admin: 08/18/18 08:31 Dose: Not Given Miscellaneous (Probiotic Screen) 1 ea MC PRN PRN PRN Reason: PROTOCOL Stop: 10/16/18 15:42 Miscellaneous (Vancomycin Iv Per Pharmacy) 1 ea MC PRN PRN PRN Reason: PROTOCOL Stop: 10/16/18 18:08 Morphine Sulfate (Morphine) 1 mg IVP Q4HR PRN PRN Reason: mild to moderate pain (1-6) Stop: 10/15/18 20:24 Last Admin: 08/17/18 19:45 Dose: 1 mg Morphine Sulfate (Morphine) 2 mg IVP Q4HR PRN PRN Reason: Severe Pain (LEVEL 7-10) Stop: 10/15/18 20:25 Last Admin: 08/18/18 08:08 Dose: 2 mg Pantoprazole Sodium (Protonix) 40 mg PO QDAC [facility] Stop: 10/16/18 07:29 Last Admin: 08/18/18 07:03 Dose: Not Given Spironolactone (Aldactone) 100 mg PO DAILY [facility] Stop: 10/16/18 12:59 Last Admin: 08/18/18 08:32 Dose: Not Given Vancomycin HCl (Vancomycin Oral) 250 mg PO Q6HR [facility] Stop: 10/15/18 20:59 Last Admin: 08/18/18 05:45 Dose: Not Given General: weak, alert HEENT: NC/AT Neck: Supple Lungs: ronchi Cardiovascular: RRR, Normal S1, Normal S2 Abdomen: distended Extremities: clear Neurological: no change Internal Medicine Assmt/Plan - Assessment Assessment: liver cirrhosis ascites anemia pneumonia h/o clostridium difficile - Plan Plan: paracentesis as per order sheet
--- NOTE | 2018-08-18 14:13 | General Progress Note ---
Subjective - Review of Systems Service Date: 08/18/18 Subjective: Patient complains of abdominal pain and palpitation Objective - Results Result Diagrams: 08/18/18 05:45 08/18/18 05:45 Recent Labs: Laboratory Last Values WBC 11.1 Th/cmm (4.8-10.8) H 08/18/18 05:45 RBC 3.40 Mil/cmm (4.30-5.70) L 08/18/18 05:45 Hgb 10.7 gm/dL (12-16) L 08/18/18 05:45 Hct 31.5 % (41.0-60) L 08/18/18 05:45 MCV 92.7 fl (80-99) 08/18/18 05:45 MCH 31.5 pg (26.0-30.0) H 08/18/18 05:45 MCHC Differential 34.0 pg (28.0-36.0) 08/18/18 05:45 RDW 16.0 % (11.5-20.0) 08/18/18 05:45 Plt Count 278 Th/cmm (150-400) 08/18/18 05:45 MPV 7.5 fl 08/18/18 05:45 Neutrophils % 78.5 % (40.0-80.0) 08/18/18 05:45 Lymphocytes % 9.5 % (20.0-50.0) L 08/18/18 05:45 Monocytes % 10.1 % (2.0-10.0) H 08/18/18 05:45 Eosinophils % 1.3 % (0.0-5.0) 08/18/18 05:45 Basophils % 0.6 % (0.0-2.0) 08/18/18 05:45 PT 12.0 SECONDS (9.5-11.5) H 08/16/18 14:30 INR 1.16 (0.5-1.4) 08/16/18 14:30 PTT (Actin FS) 27.1 SECONDS (26.0-38.0) 08/16/18 14:30 Sodium 131 mEq/L (136-145) L 08/18/18 05:45 Potassium 3.5 mEq/L (3.5-5.1) 08/18/18 05:45 Chloride 98 mEq/L (98-107) 05/12/19 05:45 Carbon Dioxide 26.2 mEq/L (21.0-31.0) 08/18/18 05:45 Anion Gap 10.3 (7.0-16.0) 08/18/18 05:45 BUN 9 mg/dL (7-25) 08/18/18 05:45 Creatinine 0.4 mg/dL (0.7-1.3) L 08/18/18 05:45 Est GFR ( Amer) > 60.0 ml/min (>90) 08/18/18 05:45 Est GFR (Non-Af Amer) > 60.0 ml/min 08/18/18 05:45 BUN/Creatinine Ratio 22.5 08/18/18 05:45 Glucose 105 mg/dL (70-105) 08/18/18 05:45 POC Glucose 96 MG/DL (70 - 105) 08/16/18 17:25 Whole Bld Lactic Acid 1.76 mmol/L (0.60-1.99) 08/16/18 17:00 Calcium 8.2 mg/dL (8.6-10.3) L 08/18/18 05:45 Total Bilirubin 0.8 mg/dL (0.3-1.0) 08/16/18 14:30 AST 45 U/L (13-39) H 08/16/18 14:30 ALT 21 U/L (7-52) 08/16/18 14:30 Alkaline Phosphatase 387 U/L (34-104) H 08/16/18 14:30 Creatine Kinase 15 U/L (30-223) L 08/16/18 14:30 Troponin I 0.01 ng/mL (0.01-0.05) 08/16/18 14:30 B-Natriuretic Peptide 63.1 pg/mL (5.0-100.0) 08/18/18 05:45 Total Protein 5.8 gm/dL (6.0-8.3) L 08/16/18 14:30 Albumin 2.9 gm/dL (4.2-5.5) L 08/16/18 14:30 Globulin 2.9 gm/dL 08/16/18 14:30 Albumin/Globulin Ratio 1.0 (1.0-1.8) 08/16/18 14:30 Amylase 43 U/L (29-103) 08/16/18 14:30 Lipase 32 U/L (11-82) 08/16/18 14:30 Urine Source MIDSTREAM 08/16/18 15:05 Urine Color YELLOW 08/16/18 15:05 Urine Clarity CLEAR (CLEAR) 08/16/18 15:05 Urine pH 6.5 (4.6 - 8.0) 08/16/18 15:05 Ur Specific [place] 1.010 (1.005-1.030) 08/16/18 15:05 Urine Protein TRACE mg/dL (NEGATIVE) 08/16/18 15:05 Urine Glucose (UA) NEGATIVE mg/dL (NEGATIVE) 08/16/18 15:05 Urine Ketones NEGATIVE mg/dL (NEGATIVE) 08/16/18 15:05 Urine Blood NEGATIVE (NEGATIVE) 08/16/18 15:05 Urine Nitrate NEGATIVE (NEGATIVE) 08/16/18 15:05 Urine Bilirubin SMALL (NEGATIVE) H 08/16/18 15:05 Urine Urobilinogen 0.2 E.U./dL (0.2 - 1.0) 08/16/18 15:05 Ur Leukocyte Esterase TRACE (NEGATIVE) H 08/16/18 15:05 Urine RBC 0-2 /hpf (0-5) H 08/16/18 15:05 Urine WBC 2-5 /hpf (0-5) 08/16/18 15:05 Ur Epithelial Cells FEW /lpf (FEW) 08/16/18 15:05 Urine Bacteria FEW /hpf (NONE SEEN) 08/16/18 15:05 Urine Mucus FEW /lpf (FEW) 08/16/18 15:05 - Physical Exam Vitals and I&O: Vital Signs Temp 96.8 F 08/18/18 12:00 Pulse 107 08/18/18 12:00 Resp 18 08/18/18 12:00 BP 105/79 08/18/18 12:00 Pulse Ox 95 08/18/18 12:00 Intake & Output 08/17/18 08/18/18 08/18/18 18:59 06:59 18:59 Intake Total 740 1400 Output Total 300 250 Balance 440 1150 Weight (lbs) 59.874 kg 59.874 kg Intake: Intake, IV Amount 1300 D5-0.9%Ns 1,000 ml @ 100 1000 mls/hr IV .Q10H [facility] Rx#: [id number] Vancomycin HCl 1 gm In 250 Sodium Chloride 0.9% 250 ml @ 165 mls/hr IV Q8H [facility] Rx#:[id number] cefTRIAXone 1 gm In 50 Sodium Chloride 0.9% 50 ml @ 100 mls/hr IV Q24HR [facility] Rx#:[id number] Oral 740 100 Output: Urine 300 250 Other: # Voids 6 # Bowel Movements 3 0 Weight Source Bedscale Bedscale Active Medications: Current Medications Aspirin (Aspirin Chewable) 81 mg PO DAILY [facility] Stop: 10/16/18 08:59 Last Admin: 08/18/18 08:31 Dose: Not Given Benzonatate (Tessalon) 100 mg PO Q8H PRN PRN Reason: Cough Stop: 10/15/18 23:37 Cholecalciferol (Vitamin D3) 1,000 iu PO DAILY [facility] Stop: 10/16/18 08:59 Last Admin: 08/18/18 08:31 Dose: Not Given Diltiazem HCl (Cardizem) 20 mg IVP Q4H PRN PRN Reason: HR Greater than 120 per min Stop: 10/16/18 15:19 Last Admin: 08/17/18 15:21 Dose: 20 mg Diltiazem HCl (Cardizem) 60 mg PO Q6HR [facility] Stop: 10/16/18 17:59 Last Admin: 08/18/18 05:51 Dose: 60 mg Ferrous Sulfate (Iron) 325 mg PO BIDWM [facility] Stop: 10/16/18 07:59 Last Admin: 08/18/18 08:30 Dose: Not Given Folic Acid (Folate) 1 mg PO DAILY [facility] Stop: 10/16/18 08:59 Last Admin: 08/18/18 08:31 Dose: Not Given Furosemide (Lasix) 40 mg IVP DAILY [facility] Stop: 10/16/18 12:59 Last Admin: 08/18/18 08:31 Dose: Not Given Dextrose/Sodium Chloride (D5-0.9%Ns) 1,000 mls @ 100 mls/hr IV .Q10H [facility] Stop: 10/16/18 09:44 Last Admin: 08/18/18 06:21 Dose: Not Given Ceftriaxone Sodium 2 gm/ (Sodium Chloride) 100 mls @ 100 mls/hr IV Q24H [facility] Stop: 10/17/18 20:59 Vancomycin HCl 1 gm/ Sodium (Chloride) 250 mls @ 250 mls/hr IV Q8H [facility] Stop: 10/17/18 11:59 Last Admin: 08/18/18 11:50 Dose: 250 mls/hr Lactobacillus Rhamnosus (Culturelle 15b) 1 each PO DAILY [facility] Stop: 10/16/18 08:59 Last Admin: 08/18/18 08:31 Dose: Not Given Miscellaneous (Probiotic Screen) 1 ea PRN PRN PRN Reason: PROTOCOL Stop: 10/16/18 15:42 Miscellaneous (Vancomycin Iv Per Pharmacy) 1 ea PRN PRN PRN Reason: PROTOCOL Stop: 10/16/18 18:08 Morphine Sulfate (Morphine) 1 mg IVP Q4HR PRN PRN Reason: mild to moderate pain (1-6) Stop: 10/15/18 20:24 Last Admin: 08/17/18 19:45 Dose: 1 mg Morphine Sulfate (Morphine) 2 mg IVP Q4HR PRN PRN Reason: Severe Pain (LEVEL 7-10) Stop: 10/15/18 20:25 Last Admin: 08/18/18 08:08 Dose: 2 mg Pantoprazole Sodium (Protonix) 40 mg PO QDAC [facility] Stop: 10/16/18 07:29 Last Admin: 08/18/18 07:03 Dose: Not Given Spironolactone (Aldactone) 100 mg PO DAILY [facility] Stop: 10/16/18 12:59 Last Admin: 08/18/18 08:32 Dose: Not Given Vancomycin HCl (Vancomycin Oral) 250 mg PO Q6HR [facility] Stop: 10/15/18 20:59 Last Admin: 08/18/18 05:45 Dose: Not Given General: Alert, Oriented x3, No acute distress HEENT: Mucous membr. moist/pink Neck: Supple Cardiovascular: Regular rate, Normal S1, Normal S2, Other Lungs: Clear to auscultation (sinus tachycardia), Normal air movement Abdomen: Bowel sounds, Soft, Splenomegaly, Distended, Other (ascites) Extremities: Edema Neurological: Normal gait, Strength at 5/5 X4 ext, Normal tone, Cranial nerves 3 -12 NL, Reflexes 2+ Assessment/Plan - Problem List Patient Problems: All Active Problems WEAKNESS WITH ABDOMINAL DISTENTION (Acute) - Assessment Assessment: Supraventricular tachycardia Pneumonia Ascites Cirrhosis of liver Anemia Splenomegaly negative C. difficile colitis Congestive heart failure diastolic dysfunction acute Hyperlipidemia - Plan Plan: Continue present management patient cleared for paracentesis Patient given Cardizem IV push to control heart rate
[2018-08-18] MEDS: cefTRIAXone 2 GM in Sodium Chloride 0.9% 100 ML IV SCH (22:52)
[2018-08-19] MEDS: Vancomycin HCL 250 mg /10mL UDC PO SCH ×3 (06:13→19:30)
[2018-08-19] MEDS: Diltiazem 30 mg Tab PO SCH ×3 (06:13→19:29)
[2018-08-19] MEDS: Pantoprazole 40 mg EC Tab PO SCH ×2 (07:39→10:19)
[2018-08-19] MEDS: Ferrous Sulfate 325 MG TAB PO SCH ×3 (07:40→19:29)
--- NOTE | 2018-08-19 08:01 | Diagnostic Imaging Report ---
CT scan abdomen and pelvis without intravenous contrast HISTORY: Pain Total DLP equals 637 CTDI equals 11.0 Axial sections were obtained from the xiphoid process down to the pubic symphysis. Limited sections through the lower chest demonstrate small bilateral pleural effusions. Coronary artery calcification is noted. Pulmonary parenchymal density noted in the lower lobes of the lungs consistent with consolidation and/or atelectasis. The exam of the abdomen and pelvis demonstrates moderate to large amount of ascites. The liver exhibits an irregular contour. No focal lesions. The spleen appears normal. There is an approximate 12.0 x 8.7 cm well-circumscribed round fluid collection within the mid abdomen. This results in partial obscuration of the body of the pancreas. Question pseudocyst formation. Peripancreatic fluid noted about the pancreatic tail region. There is also an approximate 6.0 cm well-circumscribed loculated fluid collection noted along the greater curvature of the stomach. Exact etiology uncertain. This appears to be separate from the adjacent pancreas. Small hyperdensity noted within the dependent portion of the gallbladder lumen consistent with cholelithiasis. No focal renal are seen. No hydronephrosis. Mildly dilated loops of small bowel are seen. Ascites noted in the pelvis. No abnormal soft tissue masses. IMPRESSION: 1. Relatively large amount of ascites 2. Irregular hepatic contour consistent with changes of cirrhosis 3. Loculated fluid collection in close proximity to the body of the pancreas. Question pseudocyst formation. 4. Well-circumscribed cystic density along the greater curvature of the stomach. This appears separate from the pancreas. Exact etiology uncertain. In view of the above findings, pseudocyst formation cannot be excluded. 5. Enlargement along with the heterogeneous changes and fluid in the peripancreatic region about the tail. Findings may be associated with pancreatitis. 6. Several mildly dilated loops of small bowel 7. Small bilateral pleural effusions. Bilateral lower lobe pulmonary parenchymal density consistent with consolidation and/or atelectasis 8. Coronary artery calcification IMPRESSION: 1.
[2018-08-19] MEDS: Multivitamin w/ Minerals Tab PO SCH (10:19)
[2018-08-19] MEDS: Lactobacillus Rhamnosus GG 15 Billion CFU CAP.SPRINK PO SCH (10:20)
--- NOTE | 2018-08-19 10:59 | GI Progress Note ---
Subjective - Review of Systems Service Date: 08/19/18 (No event) Subjective: Waiting for paracentesis Objective - Results Result Diagrams: 08/18/18 05:45 08/18/18 05:45 Recent Labs: Laboratory Last Values WBC 11.1 Th/cmm (4.8-10.8) H 08/18/18 05:45 RBC 3.40 Mil/cmm (4.30-5.70) L 08/18/18 05:45 Hgb 10.7 gm/dL (12-16) L 08/18/18 05:45 Hct 31.5 % (41.0-60) L 08/18/18 05:45 MCV 92.7 fl (80-99) 08/18/18 05:45 MCH 31.5 pg (26.0-30.0) H 08/18/18 05:45 MCHC Differential 34.0 pg (28.0-36.0) 08/18/18 05:45 RDW 16.0 % (11.5-20.0) 08/18/18 05:45 Plt Count 278 Th/cmm (150-400) 08/18/18 05:45 MPV 7.5 fl 08/18/18 05:45 Neutrophils % 78.5 % (40.0-80.0) 08/18/18 05:45 Lymphocytes % 9.5 % (20.0-50.0) L 08/18/18 05:45 Monocytes % 10.1 % (2.0-10.0) H 08/18/18 05:45 Eosinophils % 1.3 % (0.0-5.0) 08/18/18 05:45 Basophils % 0.6 % (0.0-2.0) 08/18/18 05:45 PT 12.0 SECONDS (9.5-11.5) H 08/16/18 14:30 INR 1.16 (0.5-1.4) 08/16/18 14:30 PTT (Actin FS) 27.1 SECONDS (26.0-38.0) 08/16/18 14:30 Sodium 131 mEq/L (136-145) L 08/18/18 05:45 Potassium 3.5 mEq/L (3.5-5.1) 08/18/18 05:45 Chloride 98 mEq/L (98-107) 05/12/19 05:45 Carbon Dioxide 26.2 mEq/L (21.0-31.0) 08/18/18 05:45 Anion Gap 10.3 (7.0-16.0) 08/18/18 05:45 BUN 9 mg/dL (7-25) 08/18/18 05:45 Creatinine 0.4 mg/dL (0.7-1.3) L 08/18/18 05:45 Est GFR ( Amer) > 60.0 ml/min (>90) 08/18/18 05:45 Est GFR (Non-Af Amer) > 60.0 ml/min 08/18/18 05:45 BUN/Creatinine Ratio 22.5 08/18/18 05:45 Glucose 105 mg/dL (70-105) 08/18/18 05:45 POC Glucose 96 MG/DL (70 - 105) 08/16/18 17:25 Whole Bld Lactic Acid 1.76 mmol/L (0.60-1.99) 08/16/18 17:00 Calcium 8.2 mg/dL (8.6-10.3) L 08/18/18 05:45 Total Bilirubin 0.8 mg/dL (0.3-1.0) 08/16/18 14:30 AST 45 U/L (13-39) H 08/16/18 14:30 ALT 21 U/L (7-52) 08/16/18 14:30 Alkaline Phosphatase 387 U/L (34-104) H 08/16/18 14:30 Creatine Kinase 15 U/L (30-223) L 08/16/18 14:30 Troponin I 0.01 ng/mL (0.01-0.05) 08/16/18 14:30 B-Natriuretic Peptide 63.1 pg/mL (5.0-100.0) 08/18/18 05:45 Total Protein 5.8 gm/dL (6.0-8.3) L 08/16/18 14:30 Albumin 2.9 gm/dL (4.2-5.5) L 08/16/18 14:30 Globulin 2.9 gm/dL 08/16/18 14:30 Albumin/Globulin Ratio 1.0 (1.0-1.8) 08/16/18 14:30 Amylase 43 U/L (29-103) 08/16/18 14:30 Lipase 32 U/L (11-82) 08/16/18 14:30 Urine Source MIDSTREAM 08/16/18 15:05 Urine Color YELLOW 08/16/18 15:05 Urine Clarity CLEAR (CLEAR) 08/16/18 15:05 Urine pH 6.5 (4.6 - 8.0) 08/16/18 15:05 Ur Specific [place] 1.010 (1.005-1.030) 08/16/18 15:05 Urine Protein TRACE mg/dL (NEGATIVE) 08/16/18 15:05 Urine Glucose (UA) NEGATIVE mg/dL (NEGATIVE) 08/16/18 15:05 Urine Ketones NEGATIVE mg/dL (NEGATIVE) 08/16/18 15:05 Urine Blood NEGATIVE (NEGATIVE) 08/16/18 15:05 Urine Nitrate NEGATIVE (NEGATIVE) 08/16/18 15:05 Urine Bilirubin SMALL (NEGATIVE) H 08/16/18 15:05 Urine Urobilinogen 0.2 E.U./dL (0.2 - 1.0) 08/16/18 15:05 Ur Leukocyte Esterase TRACE (NEGATIVE) H 08/16/18 15:05 Urine RBC 0-2 /hpf (0-5) H 08/16/18 15:05 Urine WBC 2-5 /hpf (0-5) 08/16/18 15:05 Ur Epithelial Cells FEW /lpf (FEW) 08/16/18 15:05 Urine Bacteria FEW /hpf (NONE SEEN) 08/16/18 15:05 Urine Mucus FEW /lpf (FEW) 08/16/18 15:05 Vancomycin Trough 12.4 ug/mL (5-10) H 08/18/18 19:00 - Physical Exam Vitals and I&O: Vital Signs Temp 97 F 08/19/18 07:39 Pulse 103 08/19/18 10:19 Resp 18 08/19/18 07:39 BP 120/77 08/19/18 10:20 Pulse Ox 96 08/19/18 07:39 Intake & Output 08/18/18 08/19/18 08/19/18 18:59 06:59 18:59 Intake Total 810 800 Output Total 250 Balance 810 550 Weight (lbs) 59.874 kg 73.028 kg Intake: Intake, IV Amount 250 600 Vancomycin HCl 1 gm In 250 500 Sodium Chloride 0.9% 250 ml @ 250 mls/hr IV Q8H [facility] Rx#:[id number] cefTRIAXone 2 gm In 100 Sodium Chloride 0.9% 100 ml @ 100 mls/hr IV Q24H [facility] Rx#:[id number] Oral 560 200 Output: Urine 250 Other: # Voids 3 # Bowel Movements 1 2 Stool Characteristics Liquid Brown Black Green Weight Source Bedscale Bedscale Active Medications: Current Medications Aspirin (Aspirin Chewable) 81 mg PO DAILY [facility] Stop: 10/16/18 08:59 Last Admin: 08/18/18 08:31 Dose: Not Given Benzonatate (Tessalon) 100 mg PO Q8H PRN PRN Reason: Cough Stop: 10/15/18 23:37 Cholecalciferol (Vitamin D3) 1,000 iu PO DAILY [facility] Stop: 10/16/18 08:59 Last Admin: 08/18/18 08:31 Dose: Not Given Diltiazem HCl (Cardizem) 20 mg IVP Q4H PRN PRN Reason: HR Greater than 120 per min Stop: 10/16/18 15:19 Last Admin: 08/17/18 15:21 Dose: 20 mg Diltiazem HCl (Cardizem) 60 mg PO Q6HR [facility] Stop: 10/16/18 17:59 Last Admin: 08/19/18 06:13 Dose: 60 mg Ferrous Sulfate (Iron) 325 mg PO BIDWM [facility] Stop: 10/16/18 07:59 Last Admin: 08/19/18 10:20 Dose: 325 mg Folic Acid (Folate) 1 mg PO DAILY [facility] Stop: 10/16/18 08:59 Last Admin: 08/19/18 10:20 Dose: 1 mg Furosemide (Lasix) 40 mg IVP DAILY [facility] Stop: 10/16/18 12:59 Last Admin: 08/19/18 10:20 Dose: 40 mg Dextrose/Sodium Chloride (D5-0.9%Ns) 1,000 mls @ 100 mls/hr IV .Q10H [facility] Stop: 10/16/18 09:44 Last Admin: 08/18/18 06:21 Dose: Not Given Ceftriaxone Sodium 2 gm/ (Sodium Chloride) 100 mls @ 100 mls/hr IV Q24H [facility] Stop: 10/17/18 20:59 Last Infusion: 08/18/18 23:55 Dose: Infused Vancomycin HCl 1 gm/ Sodium (Chloride) 250 mls @ 250 mls/hr IV Q8H [facility] Stop: 10/17/18 11:59 Last Infusion: 08/19/18 04:30 Dose: Infused Lactobacillus Rhamnosus (Culturelle 15b) 1 each PO DAILY [facility] Stop: 10/16/18 08:59 Last Admin: 08/19/18 10:20 Dose: 1 each Miscellaneous (Probiotic Screen) 1 [facility] PRN PRN PRN Reason: PROTOCOL Stop: 10/16/18 15:42 Miscellaneous (Vancomycin Iv Per Pharmacy) 1 e[facility] PRN PRN PRN Reason: PROTOCOL Stop: 10/16/18 18:08 Morphine Sulfate (Morphine) 1 mg IVP Q4HR PRN PRN Reason: mild to moderate pain (1-6) Stop: 10/15/18 20:24 Last Admin: 08/17/18 19:45 Dose: 1 mg Morphine Sulfate (Morphine) 2 mg IVP Q4HR PRN PRN Reason: Severe Pain (LEVEL 7-10) Stop: 10/15/18 20:25 Last Admin: 08/18/18 14:19 Dose: 2 mg Pantoprazole Sodium (Protonix) 40 mg PO QDAC [facility] Stop: 10/16/18 07:29 Last Admin: 08/19/18 10:19 Dose: 40 mg Spironolactone (Aldactone) 100 mg PO DAILY [facility] Stop: 10/16/18 12:59 Last Admin: 08/19/18 10:19 Dose: 100 mg Vancomycin HCl (Vancomycin Oral) 250 mg PO Q6HR [facility] Stop: 10/15/18 20:59 Last Admin: 08/19/18 06:13 Dose: 250 mg General: Alert, Oriented x3, No acute distress HEENT: Mucous membr. moist/pink Neck: Supple Cardiovascular: Regular rate, Normal S1, Normal S2, Other Lungs: Clear to auscultation (sinus tachycardia), Normal air movement Abdomen: Bowel sounds, Soft, Distended, Other (ascites) Extremities: Edema Assessment/Plan - Problem List Patient Problems: All Active Problems WEAKNESS WITH ABDOMINAL DISTENTION (Acute) - Assessment Assessment: Decompensated cirrhosis - Plan Plan: 1. Decompensated cirrhosis Diuresis Paracentesis AFP and US every 6 months 2. Ascites Paracentesis today Diuresis
[2018-08-19] MEDS: Aspirin 81mg Chewable Tab PO SCH (11:03)
--- NOTE | 2018-08-19 12:23 | General Progress Note ---
Subjective - Review of Systems Service Date: 08/19/18 Subjective: Patient complains of abdominal pain and palpitation Objective - Results Result Diagrams: 08/18/18 05:45 08/18/18 05:45 Recent Labs: Laboratory Last Values WBC 11.1 Th/cmm (4.8-10.8) H 08/18/18 05:45 RBC 3.40 Mil/cmm (4.30-5.70) L 08/18/18 05:45 Hgb 10.7 gm/dL (12-16) L 08/18/18 05:45 Hct 31.5 % (41.0-60) L 08/18/18 05:45 MCV 92.7 fl (80-99) 08/18/18 05:45 MCH 31.5 pg (26.0-30.0) H 08/18/18 05:45 MCHC Differential 34.0 pg (28.0-36.0) 08/18/18 05:45 RDW 16.0 % (11.5-20.0) 08/18/18 05:45 Plt Count 278 Th/cmm (150-400) 08/18/18 05:45 MPV 7.5 fl 08/18/18 05:45 Neutrophils % 78.5 % (40.0-80.0) 08/18/18 05:45 Lymphocytes % 9.5 % (20.0-50.0) L 08/18/18 05:45 Monocytes % 10.1 % (2.0-10.0) H 08/18/18 05:45 Eosinophils % 1.3 % (0.0-5.0) 08/18/18 05:45 Basophils % 0.6 % (0.0-2.0) 08/18/18 05:45 PT 12.0 SECONDS (9.5-11.5) H 08/16/18 14:30 INR 1.16 (0.5-1.4) 08/16/18 14:30 PTT (Actin FS) 27.1 SECONDS (26.0-38.0) 08/16/18 14:30 Sodium 131 mEq/L (136-145) L 08/18/18 05:45 Potassium 3.5 mEq/L (3.5-5.1) 08/18/18 05:45 Chloride 98 mEq/L (98-107) 05/12/19 05:45 Carbon Dioxide 26.2 mEq/L (21.0-31.0) 08/18/18 05:45 Anion Gap 10.3 (7.0-16.0) 08/18/18 05:45 BUN 9 mg/dL (7-25) 08/18/18 05:45 Creatinine 0.4 mg/dL (0.7-1.3) L 08/18/18 05:45 Est GFR ( Amer) > 60.0 ml/min (>90) 08/18/18 05:45 Est GFR (Non-Af Amer) > 60.0 ml/min 08/18/18 05:45 BUN/Creatinine Ratio 22.5 08/18/18 05:45 Glucose 105 mg/dL (70-105) 08/18/18 05:45 POC Glucose 96 MG/DL (70 - 105) 08/16/18 17:25 Whole Bld Lactic Acid 1.76 mmol/L (0.60-1.99) 08/16/18 17:00 Calcium 8.2 mg/dL (8.6-10.3) L 08/18/18 05:45 Total Bilirubin 0.8 mg/dL (0.3-1.0) 08/16/18 14:30 AST 45 U/L (13-39) H 08/16/18 14:30 ALT 21 U/L (7-52) 08/16/18 14:30 Alkaline Phosphatase 387 U/L (34-104) H 08/16/18 14:30 Creatine Kinase 15 U/L (30-223) L 08/16/18 14:30 Troponin I 0.01 ng/mL (0.01-0.05) 08/16/18 14:30 B-Natriuretic Peptide 63.1 pg/mL (5.0-100.0) 08/18/18 05:45 Total Protein 5.8 gm/dL (6.0-8.3) L 08/16/18 14:30 Albumin 2.9 gm/dL (4.2-5.5) L 08/16/18 14:30 Globulin 2.9 gm/dL 08/16/18 14:30 Albumin/Globulin Ratio 1.0 (1.0-1.8) 08/16/18 14:30 Amylase 43 U/L (29-103) 08/16/18 14:30 Lipase 32 U/L (11-82) 08/16/18 14:30 Urine Source MIDSTREAM 08/16/18 15:05 Urine Color YELLOW 08/16/18 15:05 Urine Clarity CLEAR (CLEAR) 08/16/18 15:05 Urine pH 6.5 (4.6 - 8.0) 08/16/18 15:05 Ur Specific [place] 1.010 (1.005-1.030) 08/16/18 15:05 Urine Protein TRACE mg/dL (NEGATIVE) 08/16/18 15:05 Urine Glucose (UA) NEGATIVE mg/dL (NEGATIVE) 08/16/18 15:05 Urine Ketones NEGATIVE mg/dL (NEGATIVE) 08/16/18 15:05 Urine Blood NEGATIVE (NEGATIVE) 08/16/18 15:05 Urine Nitrate NEGATIVE (NEGATIVE) 08/16/18 15:05 Urine Bilirubin SMALL (NEGATIVE) H 08/16/18 15:05 Urine Urobilinogen 0.2 E.U./dL (0.2 - 1.0) 08/16/18 15:05 Ur Leukocyte Esterase TRACE (NEGATIVE) H 08/16/18 15:05 Urine RBC 0-2 /hpf (0-5) H 08/16/18 15:05 Urine WBC 2-5 /hpf (0-5) 08/16/18 15:05 Ur Epithelial Cells FEW /lpf (FEW) 08/16/18 15:05 Urine Bacteria FEW /hpf (NONE SEEN) 08/16/18 15:05 Urine Mucus FEW /lpf (FEW) 08/16/18 15:05 Vancomycin Trough 12.4 ug/mL (5-10) H 08/18/18 19:00 - Physical Exam Vitals and I&O: Vital Signs Temp 97 F 08/19/18 12:00 Pulse 101 08/19/18 12:00 Resp 18 08/19/18 12:00 BP 120/83 08/19/18 12:00 Pulse Ox 94 08/19/18 12:00 Intake & Output 08/18/18 08/19/18 08/19/18 18:59 06:59 18:59 Intake Total 810 800 100 Output Total 250 2700 Balance 810 550 -2600 Weight (lbs) 59.874 kg 73.028 kg 59.874 kg Intake: Intake, IV Amount 250 600 Vancomycin HCl 1 gm In 250 500 Sodium Chloride 0.9% 250 ml @ 250 mls/hr IV Q8H [facility] Rx#:[id number] cefTRIAXone 2 gm In 100 Sodium Chloride 0.9% 100 ml @ 100 mls/hr IV Q24H [facility] Rx#:[id number] Oral 560 200 100 Output: Urine 250 300 Other 2400 Other: # Voids 3 # Bowel Movements 1 2 1 Stool Characteristics Liquid Brown Black Green Weight Source Bedscale Bedscale Bedscale Active Medications: Current Medications Aspirin (Aspirin Chewable) 81 mg PO DAILY [facility] Stop: 10/16/18 08:59 Last Admin: 08/19/18 11:03 Dose: Not Given Benzonatate (Tessalon) 100 mg PO Q8H PRN PRN Reason: Cough Stop: 10/15/18 23:37 Cholecalciferol (Vitamin D3) 1,000 iu PO DAILY [facility] Stop: 10/16/18 08:59 Last Admin: 08/18/18 08:31 Dose: Not Given Diltiazem HCl (Cardizem) 20 mg IVP Q4H PRN PRN Reason: HR Greater than 120 per min Stop: 10/16/18 15:19 Last Admin: 08/17/18 15:21 Dose: 20 mg Diltiazem HCl (Cardizem) 60 mg PO Q6HR [facility] Stop: 10/16/18 17:59 Last Admin: 08/19/18 06:13 Dose: 60 mg Ferrous Sulfate (Iron) 325 mg PO BIDWM [facility] Stop: 10/16/18 07:59 Last Admin: 08/19/18 10:20 Dose: 325 mg Folic Acid (Folate) 1 mg PO DAILY [facility] Stop: 10/16/18 08:59 Last Admin: 08/19/18 10:20 Dose: 1 mg Furosemide (Lasix) 40 mg IVP DAILY [facility] Stop: 10/16/18 12:59 Last Admin: 08/19/18 10:20 Dose: 40 mg Dextrose/Sodium Chloride (D5-0.9%Ns) 1,000 mls @ 100 mls/hr IV .Q10H [facility] Stop: 10/16/18 09:44 Last Admin: 08/18/18 06:21 Dose: Not Given Ceftriaxone Sodium 2 gm/ (Sodium Chloride) 100 mls @ 100 mls/hr IV Q24H [facility] Stop: 10/17/18 20:59 Last Infusion: 08/18/18 23:55 Dose: Infused Vancomycin HCl 1 gm/ Sodium (Chloride) 250 mls @ 250 mls/hr IV Q8H [facility] Stop: 10/17/18 11:59 Last Infusion: 08/19/18 04:30 Dose: Infused Lactobacillus Rhamnosus (Culturelle 15b) 1 each PO DAILY [facility] Stop: 10/16/18 08:59 Last Admin: 08/19/18 10:20 Dose: 1 each Miscellaneous (Probiotic Screen) 1 [facility] PRN PRN PRN Reason: PROTOCOL Stop: 10/16/18 15:42 Miscellaneous (Vancomycin Iv Per Pharmacy) 1 [facility] PRN PRN PRN Reason: PROTOCOL Stop: 10/16/18 18:08 Morphine Sulfate (Morphine) 1 mg IVP Q4HR PRN PRN Reason: mild to moderate pain (1-6) Stop: 10/15/18 20:24 Last Admin: 08/17/18 19:45 Dose: 1 mg Morphine Sulfate (Morphine) 2 mg IVP Q4HR PRN PRN Reason: Severe Pain (LEVEL 7-10) Stop: 10/15/18 20:25 Last Admin: 08/18/18 14:19 Dose: 2 mg Pantoprazole Sodium (Protonix) 40 mg PO QDAC [facility] Stop: 10/16/18 07:29 Last Admin: 08/19/18 10:19 Dose: 40 mg Spironolactone (Aldactone) 100 mg PO DAILY [facility] Stop: 10/16/18 12:59 Last Admin: 08/19/18 10:19 Dose: 100 mg Vancomycin HCl (Vancomycin Oral) 250 mg PO Q6HR [facility] Stop: 10/15/18 20:59 Last Admin: 08/19/18 06:13 Dose: 250 mg General: Alert, Oriented x3, No acute distress HEENT: Mucous membr. moist/pink Neck: Supple Cardiovascular: Regular rate, Normal S1, Normal S2, Other Lungs: Clear to auscultation (sinus tachycardia), Normal air movement Abdomen: Bowel sounds, Soft, Distended, Other (ascites) Extremities: Edema Neurological: Normal gait, Strength at 5/5 X4 ext, Normal tone, Cranial nerves 3 -12 NL, Reflexes 2+ Assessment/Plan - Problem List Patient Problems: All Active Problems WEAKNESS WITH ABDOMINAL DISTENTION (Acute) - Assessment Assessment: Supraventricular tachycardia Pneumonia Ascites Cirrhosis of liver Anemia Splenomegaly negative C. difficile colitis Congestive heart failure diastolic dysfunction acute Hyperlipidemia Paracentesis done - Plan Plan: Continue present management patient cleared for paracentesis Patient given Cardizem IV push to control heart rate paracentesis done
[2018-08-19] MEDS: D5-0.9%NS 1,000 ML IV SCH (13:04)
--- NOTE | 2018-08-19 13:18 | Internal Medicine Prog Note ---
Internal Medicine Subjective - Subjective Service Date: 08/19/18 Patient seen and examined:: with staff Patient is:: awake, talking, other (admitted with fever & abd pain Waiting for paracentesis) Patient Complaints of:: other (liver cirrhosis.) Per staff patient has:: no adverse event, no episodes of fall Internal Medicine Objective - Results Result Diagrams: 08/18/18 05:45 08/18/18 05:45 Recent Labs: Laboratory Last Values WBC 11.1 Th/cmm (4.8-10.8) H 08/18/18 05:45 RBC 3.40 Mil/cmm (4.30-5.70) L 08/18/18 05:45 Hgb 10.7 gm/dL (12-16) L 08/18/18 05:45 Hct 31.5 % (41.0-60) L 08/18/18 05:45 MCV 92.7 fl (80-99) 08/18/18 05:45 MCH 31.5 pg (26.0-30.0) H 08/18/18 05:45 MCHC Differential 34.0 pg (28.0-36.0) 08/18/18 05:45 RDW 16.0 % (11.5-20.0) 08/18/18 05:45 Plt Count 278 Th/cmm (150-400) 08/18/18 05:45 MPV 7.5 fl 08/18/18 05:45 Neutrophils % 78.5 % (40.0-80.0) 08/18/18 05:45 Lymphocytes % 9.5 % (20.0-50.0) L 08/18/18 05:45 Monocytes % 10.1 % (2.0-10.0) H 08/18/18 05:45 Eosinophils % 1.3 % (0.0-5.0) 08/18/18 05:45 Basophils % 0.6 % (0.0-2.0) 08/18/18 05:45 PT 12.0 SECONDS (9.5-11.5) H 08/16/18 14:30 INR 1.16 (0.5-1.4) 08/16/18 14:30 PTT (Actin FS) 27.1 SECONDS (26.0-38.0) 08/16/18 14:30 Sodium 131 mEq/L (136-145) L 08/18/18 05:45 Potassium 3.5 mEq/L (3.5-5.1) 08/18/18 05:45 Chloride 98 mEq/L (98-107) 08/18/18 05:45 Carbon Dioxide 26.2 mEq/L (21.0-31.0) 08/18/18 05:45 Anion Gap 10.3 (7.0-16.0) 08/18/18 05:45 BUN 9 mg/dL (7-25) 08/18/18 05:45 Creatinine 0.4 mg/dL (0.7-1.3) L 08/18/18 05:45 Est GFR ( Amer) > 60.0 ml/min (>90) 08/18/18 05:45 Est GFR (Non-Af Amer) > 60.0 ml/min 08/18/18 05:45 BUN/Creatinine Ratio 22.5 08/18/18 05:45 Glucose 105 mg/dL (70-105) 08/18/18 05:45 POC Glucose 96 MG/DL (70 - 105) 08/16/18 17:25 Whole Bld Lactic Acid 1.76 mmol/L (0.60-1.99) 08/16/18 17:00 Calcium 8.2 mg/dL (8.6-10.3) L 08/18/18 05:45 Total Bilirubin 0.8 mg/dL (0.3-1.0) 08/16/18 14:30 AST 45 U/L (13-39) H 08/16/18 14:30 ALT 21 U/L (7-52) 08/16/18 14:30 Alkaline Phosphatase 387 U/L (34-104) H 08/16/18 14:30 Creatine Kinase 15 U/L (30-223) L 08/16/18 14:30 Troponin I 0.01 ng/mL (0.01-0.05) 08/16/18 14:30 B-Natriuretic Peptide 63.1 pg/mL (5.0-100.0) 08/18/18 05:45 Total Protein 5.8 gm/dL (6.0-8.3) L 08/16/18 14:30 Albumin 2.9 gm/dL (4.2-5.5) L 08/16/18 14:30 Globulin 2.9 gm/dL 08/16/18 14:30 Albumin/Globulin Ratio 1.0 (1.0-1.8) 08/16/18 14:30 Amylase 43 U/L (29-103) 08/16/18 14:30 Lipase 32 U/L (11-82) 08/16/18 14:30 Urine Source MIDSTREAM 08/16/18 15:05 Urine Color YELLOW 08/16/18 15:05 Urine Clarity CLEAR (CLEAR) 08/16/18 15:05 Urine pH 6.5 (4.6 - 8.0) 08/16/18 15:05 Ur Specific [place] 1.010 (1.005-1.030) 08/16/18 15:05 Urine Protein TRACE mg/dL (NEGATIVE) 08/16/18 15:05 Urine Glucose (UA) NEGATIVE mg/dL (NEGATIVE) 08/16/18 15:05 Urine Ketones NEGATIVE mg/dL (NEGATIVE) 08/16/18 15:05 Urine Blood NEGATIVE (NEGATIVE) 08/16/18 15:05 Urine Nitrate NEGATIVE (NEGATIVE) 08/16/18 15:05 Urine Bilirubin SMALL (NEGATIVE) H 08/16/18 15:05 Urine Urobilinogen 0.2 E.U./dL (0.2 - 1.0) 08/16/18 15:05 Ur Leukocyte Esterase TRACE (NEGATIVE) H 08/16/18 15:05 Urine RBC 0-2 /hpf (0-5) H 08/16/18 15:05 Urine WBC 2-5 /hpf (0-5) 08/16/18 15:05 Ur Epithelial Cells FEW /lpf (FEW) 08/16/18 15:05 Urine Bacteria FEW /hpf (NONE SEEN) 08/16/18 15:05 Urine Mucus FEW /lpf (FEW) 08/16/18 15:05 Vancomycin Trough 12.4 ug/mL (5-10) H 08/18/18 19:00 - Physical Exam Vitals and I&O: Vital Signs Temp 97 F 08/19/18 12:00 Pulse 101 08/19/18 12:55 Resp 18 08/19/18 12:00 BP 120/83 08/19/18 12:00 Pulse Ox 94 08/19/18 12:00 Intake & Output 08/18/18 08/19/18 08/19/18 18:59 06:59 18:59 Intake Total 1810 800 100 Output Total 250 2700 Balance 1810 550 -2600 Weight (lbs) 59.874 kg 73.028 kg 59.874 kg Intake: Intake, IV Amount 1250 600 D5-0.9%Ns 1,000 ml @ 100 1000 mls/hr IV .Q10H [facility] Rx#: [id number] Vancomycin HCl 1 gm In 250 500 Sodium Chloride 0.9% 250 ml @ 250 mls/hr IV Q8H [facility] Rx#:[id number] cefTRIAXone 2 gm In 100 Sodium Chloride 0.9% 100 ml @ 100 mls/hr IV Q24H [facility] Rx#:[id number] Oral 560 200 100 Output: Urine 250 300 Other 2400 Other: # Voids 3 # Bowel Movements 1 2 1 Stool Characteristics Liquid Brown Black Green Weight Source Bedscale Bedscale Bedscale Active Medications: Current Medications Aspirin (Aspirin Chewable) 81 mg PO DAILY [facility] Stop: 10/16/18 08:59 Last Admin: 08/19/18 11:03 Dose: Not Given Benzonatate (Tessalon) 100 mg PO Q8H PRN PRN Reason: Cough Stop: 10/15/18 23:37 Cholecalciferol (Vitamin D3) 1,000 iu PO DAILY [facility] Stop: 10/16/18 08:59 Last Admin: 08/19/18 10:10 Dose: 1,000 iu Diltiazem HCl (Cardizem) 20 mg IVP Q4H PRN PRN Reason: HR Greater than 120 per min Stop: 10/16/18 15:19 Last Admin: 08/17/18 15:21 Dose: 20 mg Diltiazem HCl (Cardizem) 60 mg PO Q6HR [facility] Stop: 10/16/18 17:59 Last Admin: 08/19/18 12:55 Dose: 60 mg Ferrous Sulfate (Iron) 325 mg PO BIDWM [facility] Stop: 10/16/18 07:59 Last Admin: 08/19/18 10:20 Dose: 325 mg Folic Acid (Folate) 1 mg PO DAILY [facility] Stop: 10/16/18 08:59 Last Admin: 08/19/18 10:20 Dose: 1 mg Furosemide (Lasix) 40 mg IVP DAILY [facility] Stop: 10/16/18 12:59 Last Admin: 08/19/18 10:20 Dose: 40 mg Dextrose/Sodium Chloride (D5-0.9%Ns) 1,000 mls @ 100 mls/hr IV .Q10H [facility] Stop: 10/16/18 09:44 Last Admin: 08/19/18 13:04 Dose: 100 mls/hr Ceftriaxone Sodium 2 gm/ (Sodium Chloride) 100 mls @ 100 mls/hr IV Q24H [facility] Stop: 10/17/18 20:59 Last Infusion: 08/18/18 23:55 Dose: Infused Vancomycin HCl 1 gm/ Sodium (Chloride) 250 mls @ 250 mls/hr IV Q8H [facility] Stop: 10/17/18 11:59 Last Admin: 08/19/18 13:00 Dose: 250 mls/hr Lactobacillus Rhamnosus (Culturelle 15b) 1 each PO DAILY [facility] Stop: 10/16/18 08:59 Last Admin: 08/19/18 10:20 Dose: 1 each Miscellaneous (Probiotic Screen) 1 ea PRN PRN PRN Reason: PROTOCOL Stop: 10/16/18 15:42 Miscellaneous (Vancomycin Iv Per Pharmacy) 1 [facility] PRN PRN PRN Reason: PROTOCOL Stop: 10/16/18 18:08 Morphine Sulfate (Morphine) 1 mg IVP Q4HR PRN PRN Reason: mild to moderate pain (1-6) Stop: 10/15/18 20:24 Last Admin: 08/17/18 19:45 Dose: 1 mg Morphine Sulfate (Morphine) 2 mg IVP Q4HR PRN PRN Reason: Severe Pain (LEVEL 7-10) Stop: 10/15/18 20:25 Last Admin: 08/18/18 14:19 Dose: 2 mg Pantoprazole Sodium (Protonix) 40 mg PO QDAC [facility] Stop: 10/16/18 07:29 Last Admin: 08/19/18 10:19 Dose: 40 mg Spironolactone (Aldactone) 100 mg PO DAILY [facility] Stop: 10/16/18 12:59 Last Admin: 08/19/18 10:19 Dose: 100 mg Vancomycin HCl (Vancomycin Oral) 250 mg PO Q6HR [facility] Stop: 10/15/18 20:59 Last Admin: 08/19/18 12:50 Dose: 250 mg Physical Exam: 57 y/o male patient has hx of cirrhosis of the liver and ascites. General: weak, alert HEENT: NC/AT Neck: Supple Lungs: ronchi Cardiovascular: RRR, Normal S1, Normal S2 Abdomen: distended Extremities: clear Neurological: no change Internal Medicine Assmt/Plan - Assessment Assessment: liver cirrhosis ascites anemia pneumonia h/o clostridium difficile - Plan Plan: paracentesis as per order sheet
--- NOTE | 2018-08-19 13:22 | Diagnostic Imaging Report ---
Paracentesis (ultrasound-guided) HISTORY: Ascites Using ultrasound guidance and sterile technique, 2450 mL of relatively clear yellow tinted ascitic fluid was aspirated from the right lower quadrant of the abdomen. The patient tolerated the procedure with no immediate apparent clinical complications. IMPRESSION: Paracentesis as noted above
--- NOTE | 2018-08-19 14:29 | Infectious Disease Prog Note ---
Infectious Disease Subjective - Review of Systems Service Date: 08/19/18 Subjective: There is no new change, no fever. Blood culture grew strep viridans in one of the two sets. CT scan abdomen and pelvis was negative for any abscess/ Infectious Disease Objective - Results Result Diagrams: 08/18/18 05:45 08/18/18 05:45 Recent Labs: Laboratory Last Values WBC 11.1 Th/cmm (4.8-10.8) H 08/18/18 05:45 RBC 3.40 Mil/cmm (4.30-5.70) L 08/18/18 05:45 Hgb 10.7 gm/dL (12-16) L 08/18/18 05:45 Hct 31.5 % (41.0-60) L 08/18/18 05:45 MCV 92.7 fl (80-99) 08/18/18 05:45 MCH 31.5 pg (26.0-30.0) H 08/18/18 05:45 MCHC Differential 34.0 pg (28.0-36.0) 08/18/18 05:45 RDW 16.0 % (11.5-20.0) 08/18/18 05:45 Plt Count 278 Th/cmm (150-400) 08/18/18 05:45 MPV 7.5 fl 08/18/18 05:45 Neutrophils % 78.5 % (40.0-80.0) 08/18/18 05:45 Lymphocytes % 9.5 % (20.0-50.0) L 08/18/18 05:45 Monocytes % 10.1 % (2.0-10.0) H 08/18/18 05:45 Eosinophils % 1.3 % (0.0-5.0) 08/18/18 05:45 Basophils % 0.6 % (0.0-2.0) 08/18/18 05:45 PT 12.0 SECONDS (9.5-11.5) H 08/16/18 14:30 INR 1.16 (0.5-1.4) 08/16/18 14:30 PTT (Actin FS) 27.1 SECONDS (26.0-38.0) 08/16/18 14:30 Sodium 131 mEq/L (136-145) L 08/18/18 05:45 Potassium 3.5 mEq/L (3.5-5.1) 08/18/18 05:45 Chloride 98 mEq/L (98-107) 08/18/18 05:45 Carbon Dioxide 26.2 mEq/L (21.0-31.0) 08/18/18 05:45 Anion Gap 10.3 (7.0-16.0) 08/18/18 05:45 BUN 9 mg/dL (7-25) 08/18/18 05:45 Creatinine 0.4 mg/dL (0.7-1.3) L 08/18/18 05:45 Est GFR ( Amer) > 60.0 ml/min (>90) 08/18/18 05:45 Est GFR (Non-Af Amer) > 60.0 ml/min 08/18/18 05:45 BUN/Creatinine Ratio 22.5 08/18/18 05:45 Glucose 105 mg/dL (70-105) 08/18/18 05:45 POC Glucose 96 MG/DL (70 - 105) 08/16/18 17:25 Whole Bld Lactic Acid 1.76 mmol/L (0.60-1.99) 08/16/18 17:00 Calcium 8.2 mg/dL (8.6-10.3) L 08/18/18 05:45 Total Bilirubin 0.8 mg/dL (0.3-1.0) 08/16/18 14:30 AST 45 U/L (13-39) H 08/16/18 14:30 ALT 21 U/L (7-52) 08/16/18 14:30 Alkaline Phosphatase 387 U/L (34-104) H 08/16/18 14:30 Creatine Kinase 15 U/L (30-223) L 08/16/18 14:30 Troponin I 0.01 ng/mL (0.01-0.05) 08/16/18 14:30 B-Natriuretic Peptide 63.1 pg/mL (5.0-100.0) 08/18/18 05:45 Total Protein 5.8 gm/dL (6.0-8.3) L 08/16/18 14:30 Albumin 2.9 gm/dL (4.2-5.5) L 08/16/18 14:30 Globulin 2.9 gm/dL 08/16/18 14:30 Albumin/Globulin Ratio 1.0 (1.0-1.8) 08/16/18 14:30 Amylase 43 U/L (29-103) 08/16/18 14:30 Lipase 32 U/L (11-82) 08/16/18 14:30 Urine Source MIDSTREAM 08/16/18 15:05 Urine Color YELLOW 08/16/18 15:05 Urine Clarity CLEAR (CLEAR) 08/16/18 15:05 Urine pH 6.5 (4.6 - 8.0) 08/16/18 15:05 Ur Specific [place] 1.010 (1.005-1.030) 08/16/18 15:05 Urine Protein TRACE mg/dL (NEGATIVE) 08/16/18 15:05 Urine Glucose (UA) NEGATIVE mg/dL (NEGATIVE) 08/16/18 15:05 Urine Ketones NEGATIVE mg/dL (NEGATIVE) 08/16/18 15:05 Urine Blood NEGATIVE (NEGATIVE) 08/16/18 15:05 Urine Nitrate NEGATIVE (NEGATIVE) 08/16/18 15:05 Urine Bilirubin SMALL (NEGATIVE) H 08/16/18 15:05 Urine Urobilinogen 0.2 E.U./dL (0.2 - 1.0) 08/16/18 15:05 Ur Leukocyte Esterase TRACE (NEGATIVE) H 08/16/18 15:05 Urine RBC 0-2 /hpf (0-5) H 08/16/18 15:05 Urine WBC 2-5 /hpf (0-5) 08/16/18 15:05 Ur Epithelial Cells FEW /lpf (FEW) 08/16/18 15:05 Urine Bacteria FEW /hpf (NONE SEEN) 08/16/18 15:05 Urine Mucus FEW /lpf (FEW) 08/16/18 15:05 Vancomycin Trough 12.4 ug/mL (5-10) H 08/18/18 19:00 - Physical Exam Vitals and I&O: Vital Signs Temp 97 F 08/19/18 12:00 Pulse 101 08/19/18 12:55 Resp 18 08/19/18 12:00 BP 120/83 08/19/18 12:00 Pulse Ox 94 08/19/18 12:00 Intake & Output 08/18/18 08/19/18 08/19/18 18:59 06:59 18:59 Intake Total 1810 800 100 Output Total 250 2700 Balance 1810 550 -2600 Weight (lbs) 59.874 kg 73.028 kg 59.874 kg Intake: Intake, IV Amount 1250 600 D5-0.9%Ns 1,000 ml @ 100 1000 mls/hr IV .Q10H [facility] Rx#: [id number] Vancomycin HCl 1 gm In 250 500 Sodium Chloride 0.9% 250 ml @ 250 mls/hr IV Q8H [facility] Rx#:[id number] cefTRIAXone 2 gm In 100 Sodium Chloride 0.9% 100 ml @ 100 mls/hr IV Q24H [facility] Rx#:[id number] Oral 560 200 100 Output: Urine 250 300 Other 2400 Other: # Voids 3 # Bowel Movements 1 2 1 Stool Characteristics Liquid Brown Black Green Weight Source Bedscale Bedscale Bedscale Active Medications: Current Medications Aspirin (Aspirin Chewable) 81 mg PO DAILY [facility] Stop: 10/16/18 08:59 Last Admin: 08/19/18 11:03 Dose: Not Given Benzonatate (Tessalon) 100 mg PO Q8H PRN PRN Reason: Cough Stop: 10/15/18 23:37 Cholecalciferol (Vitamin D3) 1,000 iu PO DAILY [facility] Stop: 10/16/18 08:59 Last Admin: 08/19/18 10:10 Dose: 1,000 iu Diltiazem HCl (Cardizem) 20 mg IVP Q4H PRN PRN Reason: HR Greater than 120 per min Stop: 10/16/18 15:19 Last Admin: 08/17/18 15:21 Dose: 20 mg Diltiazem HCl (Cardizem) 60 mg PO Q6HR [facility] Stop: 10/16/18 17:59 Last Admin: 08/19/18 12:55 Dose: 60 mg Ferrous Sulfate (Iron) 325 mg PO BIDWM [facility] Stop: 10/16/18 07:59 Last Admin: 08/19/18 10:20 Dose: 325 mg Folic Acid (Folate) 1 mg PO DAILY [facility] Stop: 10/16/18 08:59 Last Admin: 08/19/18 10:20 Dose: 1 mg Furosemide (Lasix) 40 mg IVP DAILY [facility] Stop: 10/16/18 12:59 Last Admin: 08/19/18 10:20 Dose: 40 mg Dextrose/Sodium Chloride (D5-0.9%Ns) 1,000 mls @ 100 mls/hr IV .Q10H [facility] Stop: 10/16/18 09:44 Last Admin: 08/19/18 13:04 Dose: 100 mls/hr Ceftriaxone Sodium 2 gm/ (Sodium Chloride) 100 mls @ 100 mls/hr IV Q24H [facility] Stop: 10/17/18 20:59 Last Infusion: 08/18/18 23:55 Dose: Infused Vancomycin HCl 1 gm/ Sodium (Chloride) 250 mls @ 250 mls/hr IV Q8H [facility] Stop: 10/17/18 11:59 Last Admin: 08/19/18 13:00 Dose: 250 mls/hr Lactobacillus Rhamnosus (Culturelle 15b) 1 each PO DAILY [facility] Stop: 10/16/18 08:59 Last Admin: 08/19/18 10:20 Dose: 1 each Miscellaneous (Probiotic Screen) 1 ea PRN PRN PRN Reason: PROTOCOL Stop: 10/16/18 15:42 Miscellaneous (Vancomycin Iv Per Pharmacy) 1 [facility] PRN PRN PRN Reason: PROTOCOL Stop: 10/16/18 18:08 Morphine Sulfate (Morphine) 1 mg IVP Q4HR PRN PRN Reason: mild to moderate pain (1-6) Stop: 10/15/18 20:24 Last Admin: 08/17/18 19:45 Dose: 1 mg Morphine Sulfate (Morphine) 2 mg IVP Q4HR PRN PRN Reason: Severe Pain (LEVEL 7-10) Stop: 10/15/18 20:25 Last Admin: 08/18/18 14:19 Dose: 2 mg Pantoprazole Sodium (Protonix) 40 mg PO QDAC [facility] Stop: 10/16/18 07:29 Last Admin: 08/19/18 10:19 Dose: 40 mg Spironolactone (Aldactone) 100 mg PO DAILY [facility] Stop: 10/16/18 12:59 Last Admin: 08/19/18 10:19 Dose: 100 mg Vancomycin HCl (Vancomycin Oral) 250 mg PO Q6HR [facility] Stop: 10/15/18 20:59 Last Admin: 08/19/18 12:50 Dose: 250 mg General: no acute distress, well developed, well nourished HEENT: atraumatic, normocephalic, PERRLA, EOMI Neck: supple, no thyromegaly Cardiovascular: S1S2, regular Lungs: clear to auscultation bilaterally, clear to percussion Abdomen: soft, distended, no tender Extremities: no cyanosis, no clubbing, no edema Neurological: awake, alert, oriented Skin: intact Infectious Disease Assmt/Plan - Problem List Patient Problems: All Active Problems WEAKNESS WITH ABDOMINAL DISTENTION (Acute) - Assessment Assessment: 1. Right lower lobe pneumonia. 2. Leukocytosis, reactive versus sepsis. 3. Clostridium difficile colitis, on treatment. 4. Abdominal pain, rule out spontaneous bacterial peritonitis versus gastroenteritis. - Plan Plan: Continue Rocephin and dc vanco IV. paracentesis was ordered.
--- NOTE | 2018-08-19 14:40 | Cardiology ---
08/18/2018 ECHOCARDIOGRAM REPORT A patient of Dr. Reynoso. M-MODE ECHOCARDIOGRAM: Mitral valve, anterior leaflet of mitral valve shows normal excursion, EF velocity. Posterior leaflet of mitral valve shows normal excursion. Left ventricular posterior wall shows increased thickness, normal excursion. Interventricular septum shows increased thickness, normal excursion, hypertrophy of the left ventricle, ejection fraction 65%. Left atrium normal. Aortic root shows normal dimension, normal excursion of aortic leaflets. CONCLUSION: Hypertrophy of the left ventricle, ejection fraction 65%. 2D ECHO: Long axis view showed normal sized left ventricle with hypertrophy of the left ventricle. Left atrium normal. Aortic root shows normal dimension, normal excursion of aortic leaflets. Short axis view of mitral valve normal. Short axis view of aortic valve normal. Apical four chamber view showed normal sized left ventricle, left atrium, right ventricle, right atrium, tricuspid and mitral valve. Ejection fraction 65%. CONCLUSION: Normal 2D echo, ejection fraction 65% with minimal hypertrophy of the left ventricle. Doppler study shows trace mitral regurgitation, trace tricuspid regurgitation, right ventricular systolic pressure 28 mmHg. [facility]# [id number]
[2018-08-19] MEDS: cefTRIAXone 2 GM in Sodium Chloride 0.9% 100 ML IV SCH (21:00)
[2018-08-19 21:41] LABS: BF APPEARANCE CLEAR; BF COLOR YELLOW; BF MONOCYTES 10 %; BF RBC 389 /cumm; BF WBC 152 /cumm; BODY FLUID SOURCE ASCITIC
[2018-08-20] MEDS: Vancomycin HCL 250 mg /10mL UDC PO SCH ×4 (01:00→17:46)
[2018-08-20] MEDS: Diltiazem 30 mg Tab PO SCH ×4 (01:00→17:46)
[2018-08-20] MEDS: Pantoprazole 40 mg EC Tab PO SCH (08:22)
[2018-08-20] MEDS: Ferrous Sulfate 325 MG TAB PO SCH ×2 (08:22→17:47)
[2018-08-20] MEDS: Lactobacillus Rhamnosus GG 15 Billion CFU CAP.SPRINK PO SCH (08:22)
[2018-08-20] MEDS: Multivitamin w/ Minerals Tab PO SCH (08:22)
[2018-08-20] MEDS: Aspirin 81mg Chewable Tab PO SCH (08:23)
--- NOTE | 2018-08-20 10:34 | GI Progress Note ---
Subjective - Review of Systems Service Date: 08/20/18 Events since last encounter: S/P paracentesis Subjective: Better Objective - Results Result Diagrams: 08/18/18 05:45 08/18/18 05:45 Recent Labs: Laboratory Last Values WBC 11.1 Th/cmm (4.8-10.8) H 08/18/18 05:45 RBC 3.40 Mil/cmm (4.30-5.70) L 08/18/18 05:45 Hgb 10.7 gm/dL (12-16) L 08/18/18 05:45 Hct 31.5 % (41.0-60) L 08/18/18 05:45 MCV 92.7 fl (80-99) 08/18/18 05:45 MCH 31.5 pg (26.0-30.0) H 08/18/18 05:45 MCHC Differential 34.0 pg (28.0-36.0) 08/18/18 05:45 RDW 16.0 % (11.5-20.0) 08/18/18 05:45 Plt Count 278 Th/cmm (150-400) 08/18/18 05:45 MPV 7.5 fl 08/18/18 05:45 Neutrophils % 78.5 % (40.0-80.0) 08/18/18 05:45 Lymphocytes % 9.5 % (20.0-50.0) L 08/18/18 05:45 Monocytes % 10.1 % (2.0-10.0) H 08/18/18 05:45 Eosinophils % 1.3 % (0.0-5.0) 08/18/18 05:45 Basophils % 0.6 % (0.0-2.0) 08/18/18 05:45 PT 12.0 SECONDS (9.5-11.5) H 08/16/18 14:30 INR 1.16 (0.5-1.4) 08/16/18 14:30 PTT (Actin FS) 27.1 SECONDS (26.0-38.0) 08/16/18 14:30 Sodium 131 mEq/L (136-145) L 08/18/18 05:45 Potassium 3.5 mEq/L (3.5-5.1) 08/18/18 05:45 Chloride 98 mEq/L (98-107) 08/18/18 05:45 Carbon Dioxide 26.2 mEq/L (21.0-31.0) 08/18/18 05:45 Anion Gap 10.3 (7.0-16.0) 08/18/18 05:45 BUN 9 mg/dL (7-25) 08/18/18 05:45 Creatinine 0.4 mg/dL (0.7-1.3) L 08/18/18 05:45 Est GFR ( Amer) > 60.0 ml/min (>90) 08/18/18 05:45 Est GFR (Non-Af Amer) > 60.0 ml/min 08/18/18 05:45 BUN/Creatinine Ratio 22.5 08/18/18 05:45 Glucose 105 mg/dL (70-105) 08/18/18 05:45 POC Glucose 96 MG/DL (70 - 105) 08/16/18 17:25 Whole Bld Lactic Acid 1.76 mmol/L (0.60-1.99) 08/16/18 17:00 Calcium 8.2 mg/dL (8.6-10.3) L 08/18/18 05:45 Total Bilirubin 0.8 mg/dL (0.3-1.0) 08/16/18 14:30 AST 45 U/L (13-39) H 08/16/18 14:30 ALT 21 U/L (7-52) 08/16/18 14:30 Alkaline Phosphatase 387 U/L (34-104) H 08/16/18 14:30 Creatine Kinase 15 U/L (30-223) L 08/16/18 14:30 Troponin I 0.01 ng/mL (0.01-0.05) 08/16/18 14:30 B-Natriuretic Peptide 63.1 pg/mL (5.0-100.0) 08/18/18 05:45 Total Protein 5.8 gm/dL (6.0-8.3) L 08/16/18 14:30 Albumin 2.9 gm/dL (4.2-5.5) L 08/16/18 14:30 Globulin 2.9 gm/dL 08/16/18 14:30 Albumin/Globulin Ratio 1.0 (1.0-1.8) 08/16/18 14:30 Amylase 43 U/L (29-103) 08/16/18 14:30 Lipase 32 U/L (11-82) 08/16/18 14:30 Urine Source MIDSTREAM 08/16/18 15:05 Urine Color YELLOW 08/16/18 15:05 Urine Clarity CLEAR (CLEAR) 08/16/18 15:05 Urine pH 6.5 (4.6 - 8.0) 08/16/18 15:05 Ur Specific [place] 1.010 (1.005-1.030) 08/16/18 15:05 Urine Protein TRACE mg/dL (NEGATIVE) 08/16/18 15:05 Urine Glucose (UA) NEGATIVE mg/dL (NEGATIVE) 08/16/18 15:05 Urine Ketones NEGATIVE mg/dL (NEGATIVE) 08/16/18 15:05 Urine Blood NEGATIVE (NEGATIVE) 08/16/18 15:05 Urine Nitrate NEGATIVE (NEGATIVE) 08/16/18 15:05 Urine Bilirubin SMALL (NEGATIVE) H 08/16/18 15:05 Urine Urobilinogen 0.2 E.U./dL (0.2 - 1.0) 08/16/18 15:05 Ur Leukocyte Esterase TRACE (NEGATIVE) H 08/16/18 15:05 Urine RBC 0-2 /hpf (0-5) H 08/16/18 15:05 Urine WBC 2-5 /hpf (0-5) 08/16/18 15:05 Ur Epithelial Cells FEW /lpf (FEW) 08/16/18 15:05 Urine Bacteria FEW /hpf (NONE SEEN) 08/16/18 15:05 Urine Mucus FEW /lpf (FEW) 08/16/18 15:05 Fluid Source ASCITIC 08/19/18 11:45 Fluid Color YELLOW 08/19/18 11:45 Fluid Appearance CLEAR 08/19/18 11:45 Fluid WBC 152 /cumm 08/19/18 11:45 Fluid RBC 389 /cumm 08/19/18 11:45 Fluid Neutrophils 76 % 08/19/18 11:45 Fluid Lymphocytes 22 % 08/19/18 11:45 Fluid Monocytes 10 % 08/19/18 11:45 Fluid Eosinophils 2 % 08/19/18 11:45 Fluid Basophils 0 % 08/19/18 11:45 Vancomycin Trough 12.4 ug/mL (5-10) H 08/18/18 19:00 - Physical Exam Vitals and I&O: Vital Signs Temp 97 F 08/20/18 07:46 Pulse 84 08/20/18 08:23 Resp 18 08/20/18 07:46 BP 126/75 08/20/18 08:23 Pulse Ox 96 08/20/18 07:46 Intake & Output 08/19/18 08/20/18 08/20/18 18:59 06:59 18:59 Intake Total 350 1010 Output Total 2700 600 Balance -2350 410 Weight (lbs) 59.874 kg 59.874 kg Intake: Intake, IV Amount 250 250 Vancomycin HCl 1 gm In 250 250 Sodium Chloride 0.9% 250 ml @ 250 mls/hr IV Q8H [facility] Rx#:[id number] Oral 100 760 Output: Urine 300 600 Other 2400 Other: # Voids 2 # Bowel Movements 1 1 Stool Characteristics Liquid Brown Weight Source Bedscale Bedscale Active Medications: Current Medications Aspirin (Aspirin Chewable) 81 mg PO DAILY [facility] Stop: 10/16/18 08:59 Last Admin: 08/20/18 08:23 Dose: 81 mg Benzonatate (Tessalon) 100 mg PO Q8H PRN PRN Reason: Cough Stop: 10/15/18 23:37 Cholecalciferol (Vitamin D3) 1,000 iu PO DAILY [facility] Stop: 10/16/18 08:59 Last Admin: 08/20/18 08:22 Dose: 1,000 iu Diltiazem HCl (Cardizem) 20 mg IVP Q4H PRN PRN Reason: HR Greater than 120 per min Stop: 10/16/18 15:19 Last Admin: 08/17/18 15:21 Dose: 20 mg Diltiazem HCl (Cardizem) 60 mg PO Q6HR [facility] Stop: 10/16/18 17:59 Last Admin: 08/20/18 06:11 Dose: 60 mg Ferrous Sulfate (Iron) 325 mg PO BIDWM [facility] Stop: 10/16/18 07:59 Last Admin: 08/20/18 08:22 Dose: 325 mg Folic Acid (Folate) 1 mg PO DAILY [facility] Stop: 10/16/18 08:59 Last Admin: 08/20/18 08:22 Dose: 1 mg Furosemide (Lasix) 40 mg IVP DAILY [facility] Stop: 10/16/18 12:59 Last Admin: 08/20/18 08:23 Dose: 40 mg Dextrose/Sodium Chloride (D5-0.9%Ns) 1,000 mls @ 100 mls/hr IV .Q10H [facility] Stop: 10/16/18 09:44 Last Admin: 08/19/18 13:04 Dose: 100 mls/hr Ceftriaxone Sodium 2 gm/ (Sodium Chloride) 100 mls @ 100 mls/hr IV Q24H [facility] Stop: 10/17/18 20:59 Last Admin: 08/19/18 21:00 Dose: 100 mls/hr Vancomycin HCl 1.25 gm/ Sodium (Chloride) 250 mls @ 165 mls/hr IV Q8H [facility] Stop: 10/19/18 11:59 Miscellaneous (Probiotic Screen) 1 ea PRN PRN PRN Reason: PROTOCOL Stop: 10/16/18 15:42 Miscellaneous (Vancomycin Iv Per Pharmacy) 1 ea PRN PRN PRN Reason: PROTOCOL Stop: 10/16/18 18:08 Morphine Sulfate (Morphine) 1 mg IVP Q4HR PRN PRN Reason: mild to moderate pain (1-6) Stop: 10/15/18 20:24 Last Admin: 08/17/18 19:45 Dose: 1 mg Morphine Sulfate (Morphine) 2 mg IVP Q4HR PRN PRN Reason: Severe Pain (LEVEL 7-10) Stop: 10/15/18 20:25 Last Admin: 08/18/18 14:19 Dose: 2 mg Pantoprazole Sodium (Protonix) 40 mg PO QDAC [facility] Stop: 10/16/18 07:29 Last Admin: 08/20/18 08:22 Dose: 40 mg Spironolactone (Aldactone) 100 mg PO DAILY [facility] Stop: 10/16/18 12:59 Last Admin: 08/20/18 08:23 Dose: 100 mg Vancomycin HCl (Vancomycin Oral) 250 mg PO Q6HR [facility] Stop: 10/15/18 20:59 Last Admin: 08/20/18 06:11 Dose: 250 mg General: Alert, Oriented x3, No acute distress HEENT: Mucous membr. moist/pink Neck: Supple Cardiovascular: Regular rate, Normal S1, Normal S2, Other Lungs: Clear to auscultation (sinus tachycardia), Normal air movement Abdomen: Bowel sounds, Soft, Distended, Other (ascites) Extremities: Edema Assessment/Plan - Problem List Patient Problems: All Active Problems WEAKNESS WITH ABDOMINAL DISTENTION (Acute) - Assessment Assessment: Decompensated cirrhosis - Plan Plan: 1. Decompensated cirrhosis Diuresis Paracentesis PRN AFP and US every 6 months 2. Ascites Paracentesis PRN Diuresis
[2018-08-20 11:56] LABS: % EOSINOPHILS 0.8 % (0.0-5.0); % LYMPHOCYTES 7.9 % (20.0-50.0); % MONOCYTES 9.3 % (2.0-10.0); EOSINOPHILE ABSOLUTE 0.1 Th/cmm (0.1-0.4); HEMATOCRIT 35.2 % (41.0-60); HEMOGLOBIN 11.2 gm/dL (12-16); MEAN CELL VOLUME 91.1 fl (80-99); MEAN CORPUSCULAR HGB CONC 31.9 pg (28.0-36.0); MONOCYTE ABSOLUTE 1.1 Th/cmm (0.3-1.0); NEUTROPHILE ABSOLUTE 10.1 Th/cmm (1.8-8.0); PLATELET COUNT 307 Th/cmm (150-400); RED BLOOD COUNT 3.86 Mil/cmm (4.30-5.70); RED CELL DISTRIBUTION WIDTH 15.6 % (11.5-20.0); WHITE BLOOD COUNT 12.3 Th/cmm (4.8-10.8)
[2018-08-20 12:05] LABS: BF TOTAL PROTEIN 1.4 g/dL
[2018-08-20 12:12] LABS: INR 1.19 (0.5-1.4); PROTHROMBIN TIME (TEST) 12.3 SECONDS (9.5-11.5)
[2018-08-20 12:16] LABS: ANION GAP 13.3 (7.0-16.0); BUN - UREA NITROGEN 11 mg/dL (7-25); CALCIUM SERUM 8.7 mg/dL (8.6-10.3); CARBON DIOXIDE 27.1 mEq/L (21.0-31.0); CHLORIDE 97 mEq/L (98-107); CREATININE - SERUM 0.5 mg/dL (0.7-1.3); GFR AFRICAN-AMERICAN > 60.0 ml/min (>90); GFR NON AFRICAN-AMERICAN > 60.0 ml/min; GLUCOSE 112 mg/dL (70-105); POTASSIUM SERUM 3.4 mEq/L (3.5-5.1); SODIUM SERUM 134 mEq/L (136-145)
--- NOTE | 2018-08-20 12:18 | General Progress Note ---
Subjective - Review of Systems Service Date: 08/20/18 Subjective: Patient complains of abdominal pain and palpitation Objective - Results Result Diagrams: 08/20/18 11:50 08/18/18 05:45 Recent Labs: Laboratory Last Values WBC 12.3 Th/cmm (4.8-10.8) H 08/20/18 11:50 RBC 3.86 Mil/cmm (4.30-5.70) L 08/20/18 11:50 Hgb 11.2 gm/dL (12-16) L 08/20/18 11:50 Hct 35.2 % (41.0-60) L 08/20/18 11:50 MCV 91.1 fl (80-99) 08/20/18 11:50 MCH 29.0 pg (26.0-30.0) 08/20/18 11:50 MCHC Differential 31.9 pg (28.0-36.0) 08/20/18 11:50 RDW 15.6 % (11.5-20.0) 08/20/18 11:50 Plt Count 307 Th/cmm (150-400) 08/20/18 11:50 MPV 7.0 fl 08/20/18 11:50 Neutrophils % 82.0 % (40.0-80.0) H 08/20/18 11:50 Lymphocytes % 7.9 % (20.0-50.0) L 08/20/18 11:50 Monocytes % 9.3 % (2.0-10.0) 08/20/18 11:50 Eosinophils % 0.8 % (0.0-5.0) 08/20/18 11:50 Basophils % 0.0 % (0.0-2.0) 08/20/18 11:50 PT 12.0 SECONDS (9.5-11.5) H 08/16/18 14:30 INR 1.16 (0.5-1.4) 08/16/18 14:30 PTT (Actin FS) 27.1 SECONDS (26.0-38.0) 08/16/18 14:30 Sodium 131 mEq/L (136-145) L 08/18/18 05:45 Potassium 3.5 mEq/L (3.5-5.1) 08/18/18 05:45 Chloride 98 mEq/L (98-107) 08/18/18 05:45 Carbon Dioxide 26.2 mEq/L (21.0-31.0) 08/18/18 05:45 Anion Gap 10.3 (7.0-16.0) 08/18/18 05:45 BUN 9 mg/dL (7-25) 08/18/18 05:45 Creatinine 0.4 mg/dL (0.7-1.3) L 08/18/18 05:45 Est GFR ( Amer) > 60.0 ml/min (>90) 08/18/18 05:45 Est GFR (Non-Af Amer) > 60.0 ml/min 08/18/18 05:45 BUN/Creatinine Ratio 22.5 08/18/18 05:45 Glucose 105 mg/dL (70-105) 08/18/18 05:45 POC Glucose 96 MG/DL (70 - 105) 08/16/18 17:25 Whole Bld Lactic Acid 1.76 mmol/L (0.60-1.99) 08/16/18 17:00 Calcium 8.2 mg/dL (8.6-10.3) L 08/18/18 05:45 Total Bilirubin 0.8 mg/dL (0.3-1.0) 08/16/18 14:30 AST 45 U/L (13-39) H 08/16/18 14:30 ALT 21 U/L (7-52) 08/16/18 14:30 Alkaline Phosphatase 387 U/L (34-104) H 08/16/18 14:30 Creatine Kinase 15 U/L (30-223) L 08/16/18 14:30 Troponin I 0.01 ng/mL (0.01-0.05) 08/16/18 14:30 B-Natriuretic Peptide 63.1 pg/mL (5.0-100.0) 08/18/18 05:45 Total Protein 5.8 gm/dL (6.0-8.3) L 08/16/18 14:30 Albumin 2.9 gm/dL (4.2-5.5) L 08/16/18 14:30 Globulin 2.9 gm/dL 08/16/18 14:30 Albumin/Globulin Ratio 1.0 (1.0-1.8) 08/16/18 14:30 Amylase 43 U/L (29-103) 08/16/18 14:30 Lipase 32 U/L (11-82) 08/16/18 14:30 Urine Source MIDSTREAM 08/16/18 15:05 Urine Color YELLOW 08/16/18 15:05 Urine Clarity CLEAR (CLEAR) 08/16/18 15:05 Urine pH 6.5 (4.6 - 8.0) 08/16/18 15:05 Ur Specific [place] 1.010 (1.005-1.030) 08/16/18 15:05 Urine Protein TRACE mg/dL (NEGATIVE) 08/16/18 15:05 Urine Glucose (UA) NEGATIVE mg/dL (NEGATIVE) 08/16/18 15:05 Urine Ketones NEGATIVE mg/dL (NEGATIVE) 08/16/18 15:05 Urine Blood NEGATIVE (NEGATIVE) 08/16/18 15:05 Urine Nitrate NEGATIVE (NEGATIVE) 08/16/18 15:05 Urine Bilirubin SMALL (NEGATIVE) H 08/16/18 15:05 Urine Urobilinogen 0.2 E.U./dL (0.2 - 1.0) 08/16/18 15:05 Ur Leukocyte Esterase TRACE (NEGATIVE) H 08/16/18 15:05 Urine RBC 0-2 /hpf (0-5) H 08/16/18 15:05 Urine WBC 2-5 /hpf (0-5) 08/16/18 15:05 Ur Epithelial Cells FEW /lpf (FEW) 08/16/18 15:05 Urine Bacteria FEW /hpf (NONE SEEN) 08/16/18 15:05 Urine Mucus FEW /lpf (FEW) 08/16/18 15:05 Fluid Source ASCITIC 08/19/18 11:45 Fluid Color YELLOW 08/19/18 11:45 Fluid Appearance CLEAR 08/19/18 11:45 Fluid WBC 152 /cumm 08/19/18 11:45 Fluid RBC 389 /cumm 08/19/18 11:45 Fluid Neutrophils 76 % 08/19/18 11:45 Fluid Lymphocytes 22 % 08/19/18 11:45 Fluid Monocytes 10 % 08/19/18 11:45 Fluid Eosinophils 2 % 08/19/18 11:45 Fluid Basophils 0 % 08/19/18 11:45 Fluid Glucose 109.0 mg/dL 08/19/18 11:45 Fluid Total Protein 1.4 g/dL 08/19/18 11:45 Fluid LDH 132 U/L 08/19/18 11:45 Vancomycin Trough 12.4 ug/mL (5-10) H 08/18/18 19:00 - Physical Exam Vitals and I&O: Vital Signs Temp 97.4 F 08/20/18 12:00 Pulse 108 08/20/18 12:03 Resp 18 08/20/18 12:00 BP 105/65 08/20/18 12:00 Pulse Ox 95 08/20/18 12:00 Intake & Output 08/19/18 08/20/18 08/20/18 18:59 06:59 18:59 Intake Total 350 1010 Output Total 2700 600 Balance -2350 410 Weight (lbs) 59.874 kg 59.874 kg 59.874 kg Intake: Intake, IV Amount 250 250 Vancomycin HCl 1 gm In 250 250 Sodium Chloride 0.9% 250 ml @ 250 mls/hr IV Q8H [facility] Rx#:[id number] Oral 100 760 Output: Urine 300 600 Other 2400 Other: # Voids 2 # Bowel Movements 1 1 1 Stool Characteristics Liquid Liquid Brown Brown Weight Source Bedscale Bedscale Bedscale Active Medications: Current Medications Aspirin (Aspirin Chewable) 81 mg PO DAILY [facility] Stop: 10/16/18 08:59 Last Admin: 08/20/18 08:23 Dose: 81 mg Benzonatate (Tessalon) 100 mg PO Q8H PRN PRN Reason: Cough Stop: 10/15/18 23:37 Cholecalciferol (Vitamin D3) 1,000 iu PO DAILY [facility] Stop: 10/16/18 08:59 Last Admin: 08/20/18 08:22 Dose: 1,000 iu Diltiazem HCl (Cardizem) 20 mg IVP Q4H PRN PRN Reason: HR Greater than 120 per min Stop: 10/16/18 15:19 Last Admin: 08/17/18 15:21 Dose: 20 mg Diltiazem HCl (Cardizem) 60 mg PO Q6HR [facility] Stop: 10/16/18 17:59 Last Admin: 08/20/18 12:03 Dose: 60 mg Ferrous Sulfate (Iron) 325 mg PO BIDWM [facility] Stop: 10/16/18 07:59 Last Admin: 08/20/18 08:22 Dose: 325 mg Folic Acid (Folate) 1 mg PO DAILY [facility] Stop: 10/16/18 08:59 Last Admin: 08/20/18 08:22 Dose: 1 mg Furosemide (Lasix) 40 mg IVP DAILY [facility] Stop: 10/16/18 12:59 Last Admin: 08/20/18 08:23 Dose: 40 mg Dextrose/Sodium Chloride (D5-0.9%Ns) 1,000 mls @ 100 mls/hr IV .Q10H [facility] Stop: 10/16/18 09:44 Last Admin: 08/19/18 13:04 Dose: 100 mls/hr Ceftriaxone Sodium 2 gm/ (Sodium Chloride) 100 mls @ 100 mls/hr IV Q24H [facility] Stop: 10/17/18 20:59 Last Admin: 08/19/18 21:00 Dose: 100 mls/hr Vancomycin HCl 1.25 gm/ Sodium (Chloride) 250 mls @ 165 mls/hr IV Q8H [facility] Stop: 10/19/18 11:59 Last Admin: 08/20/18 12:10 Dose: 165 mls/hr Miscellaneous (Probiotic Screen) 1 ea PRN PRN PRN Reason: PROTOCOL Stop: 10/16/18 15:42 Miscellaneous (Vancomycin Iv Per Pharmacy) 1 ea PRN PRN PRN Reason: PROTOCOL Stop: 10/16/18 18:08 Morphine Sulfate (Morphine) 1 mg IVP Q4HR PRN PRN Reason: mild to moderate pain (1-6) Stop: 10/15/18 20:24 Last Admin: 08/17/18 19:45 Dose: 1 mg Morphine Sulfate (Morphine) 2 mg IVP Q4HR PRN PRN Reason: Severe Pain (LEVEL 7-10) Stop: 10/15/18 20:25 Last Admin: 08/18/18 14:19 Dose: 2 mg Pantoprazole Sodium (Protonix) 40 mg PO QDAC [facility] Stop: 10/16/18 07:29 Last Admin: 08/20/18 08:22 Dose: 40 mg Spironolactone (Aldactone) 100 mg PO DAILY [facility] Stop: 10/16/18 12:59 Last Admin: 08/20/18 08:23 Dose: 100 mg Vancomycin HCl (Vancomycin Oral) 250 mg PO Q6HR [facility] Stop: 07/09/19 20:59 Last Admin: 08/20/18 12:01 Dose: 250 mg General: Alert, Oriented x3, No acute distress HEENT: Mucous membr. moist/pink Neck: Supple Cardiovascular: Regular rate, Normal S1, Normal S2, Other Lungs: Clear to auscultation (sinus tachycardia), Normal air movement Abdomen: Bowel sounds, Soft, Distended, Other (ascites) Extremities: Edema Neurological: Normal gait, Strength at 5/5 X4 ext, Normal tone, Cranial nerves 3 -12 NL, Reflexes 2+ Assessment/Plan - Problem List Patient Problems: All Active Problems WEAKNESS WITH ABDOMINAL DISTENTION (Acute) - Assessment Assessment: Supraventricular tachycardia Pneumonia Ascites Cirrhosis of liver Anemia Splenomegaly negative C. difficile colitis Congestive heart failure diastolic dysfunction acute Hyperlipidemia Paracentesis done - Plan Plan: Continue present management patient cleared for paracentesis Patient given Cardizem IV push to control heart rate paracentesis done
[2018-08-20 12:47] LABS: BAND NEUTROPHILE 2 % (0-10); LYMPHOCYTE 10 % (20-50); NEUTROPHILS 80 % (40-80)
[2018-08-20 12:48] LABS: EOSINOPHIL 1 % (0-5); MONOCYTE 7 % (2-10)
== END 2018-08-20 19:30 | DRG 720 ==
LOC: ER 13:46 → TELE 16:07
PROVIDERS: ADMIT Internal Medicine; ATTEND Internal Medicine
PROC: 0W9G3ZZ Drainage of Peritoneal Cavity, Percutaneous Approach (ICD-10-PCS; principal; 2018-08-19)
DX: A41.9 Sepsis, unspecified organism (principal); I50.31 Acute diastolic (congestive) heart failure; R18.8 Other ascites; J18.1 Lobar pneumonia, unspecified organism; A04.72 Enterocolitis due to Clostridium difficile, not specified as recurrent; I47.1 Supraventricular tachycardia; E87.1 Hypo-osmolality and hyponatremia; I11.0 Hypertensive heart disease with heart failure; K74.60 Unspecified cirrhosis of liver; E78.5 Hyperlipidemia, unspecified; I25.10 Atherosclerotic heart disease of native coronary artery without angina pectoris; D64.9 Anemia, unspecified; E86.0 Dehydration; N39.0 Urinary tract infection, site not specified; F17.210 Nicotine dependence, cigarettes, uncomplicated
CPT/HCPCS: 36415-UA; 71045-TC; 76942-TC; 80048-TC; 80053-TC; 80202-TC; 81001-TC; 82150-TC; 82550-TC; 82945-TC; 82948-90; 83605; 83615-TC; 83690-TC; 83880-TC; 84157-TC; 84484-TC; 85007-TC; 85025-TC; 85610-TC; 85730-TC; 87070-90; 87075-90; 87086-90; 87205-90; 87230-TC; 89051-TC; 90779; 93005; J0696; J1940; J1956; J2270; J3370; J7030; J7042; Z7610